=== PATIENT | female | born 1935 | race Caucasian/White ===

== ENCOUNTER 2016-07-15 09:51 | Outpatient (CLI) | payer MEDICARE ==
[~2016-07-15] VITALS: Ht 157.5 cm; Wt 58.1 kg
[~2016-07-15 09:51] MED LIST: ACHD5005 PO; ACYC400T21 PO; ALPR.25T PO; ALPR0.254 PO; AMLO5TAB2; AMLO5TAB2 PO; ASP81TEC PO; ATOR40TA; ATOR40TA PO; ATOR40TA70 PO; BACL10TA; BACL10TA PO; CALC-6 PO; CALC-694 PO; CALC-793 PO; CEPH500T PO; CHOL400C8 PO; CLOP75TA28 PO; CLPD75T PO; CYAN50003 PO; CYCL10TA45 PO; CYCL10TA9 PO; DEXL60CA5 PO; DICL50TA3 PO; DICL50TA6 PO; DIPH1TAB25 PO; ENAL2.5T PO; EXEN10PE4 SQ; FAMO20TA5; FURO20TA4 PO; GABA-488 PO; GABA100C PO; GABA300C PO; GLIM4TAB PO; GLMP2T PO; HYDR-3714 PO; HYDR-3820 PO; HYOS0.1217 PO; HYOS0.1217 SL; INSU100I16 SQ; INSU100V5 SQ; ISM30TCR PO; ISOS30TA3 PO; LEVE1U SQ; LIDO700A6 TP; LRT10T PO; MAGN400C PO; MESA800T PO; METF-380 PO; METO25TA2 PO; METR500T PO; MSL400TEC PO; MULT-608 PO; NF-METHYLP PO; NITR0.3T6 SL; NITR0.4T39 SL; NTR.4SL SL; Nystatin TP; OMEG-59 PO; OMEG-77 PO; OMEG1CAP51 PO; OMEG1CAP74 PO; OMEP20CA12 PO; ONDN4T PO; OXC10TCR PO; OXYB5TAB9; OXYB5TAB9 PO; OXYC-12 PO; OXYC10TA55; OXYC10TA63 PO; OXYC15TA73 PO; PANT40TA PO; PANT40TA3 PO; PARO12.5 PO; PARO20TA4 PO; PARO40TA3 PO; PNT40TEC PO; POTA10CA43 PO; POTA99TA15 PO; POTA99TA7 PO; PRAV80TA2 PO; PRM25T PO; PSYL1CAP3 PO; QUIN20TA PO; RANI300T4 PO; RNT150T PO; SCR1T1 PO; SIME125C PO; SIMV40TA2 PO; TRUBIOTICS PO; VITA1CAP21 PO; VITA1TAB30 PO; ZLP10T PO; [UNRECOGNIZED DRUG - CODE]
[2016-07-15] MEDS ORDERED: PREG50CA2 PO (10:07)
[2016-07-15 10:20] VITALS: BP 116/62
[2016-07-15 10:55] LABS: BASOPHILS % (AUTO) 0 % (0-10); EOSINOPHILS # (AUTO) 0.2 10^3/uL (0.0-0.3); EOSINOPHILS % (AUTO) 3 % (0-10); LYMPHOCYTES # (AUTO) 1.7 X 10^3 (1.0-4.0); LYMPHOCYTES % (AUTO) 23 % (12-44); MEAN CORPUSCULAR HEMOGLOBIN 31 PG (25-34); MEAN CORPUSCULAR HGB CONC 34 G/DL (32-36); MEAN CORPUSCULAR VOLUME 91 FL (80-99); MEAN PLATELET VOLUME 9.9 FL (7.4-10.4); MONOCYTES # (AUTO) 0.4 X 10^3 (0.0-1.0); MONOCYTES % (AUTO) 6 % (0-12); NEUTROPHILS % (AUTO) 68 % (42-75); PLATELET COUNT 244 10^3/uL (130-400); RED BLOOD COUNT 4.31 10^6/uL (4.35-5.85); RED CELL DISTRIBUTION WIDTH 12.4 % (10.0-14.5); WHITE BLOOD COUNT 7.4 10^3/uL (4.3-11.0)
[2016-07-15 11:22] LABS: ALANINE AMINOTRANSFERASE 21 U/L (0-55); ALBUMIN 3.6 G/DL (3.2-4.5); ANION GAP 8 MMOL/L (5-14); ASPARTATE AMINO TRANSFERASE 18 U/L (5-34); BILIRUBIN,TOTAL 0.4 MG/DL (0.1-1.0); BLOOD UREA NITROGEN 20 MG/DL (7-18); BUN/CREATININE RATIO 28; CALCIUM 8.9 MG/DL (8.5-10.1); CARBON DIOXIDE 27 MMOL/L (21-32); CHLORIDE 102 MMOL/L (98-107); CREATININE SERUM 0.72 MG/DL (0.60-1.30); GFR ESTIMATED > 60; GLUCOSE 164 MG/DL (70-105); POTASSIUM 4.4 MMOL/L (3.6-5.0); SODIUM 137 MMOL/L (135-145); TOTAL PROTEIN 6.2 G/DL (6.4-8.2)
== END 2016-07-15 11:32 | disposition home or self-care (01) ==
LOC: PREOP 09:51
PROVIDERS: ATTEND Orthopaedic Surgery
DX: Z01.812 Encounter for preprocedural laboratory examination (principal); Z11.2 Encounter for screening for other bacterial diseases; M48.06 Spinal stenosis, lumbar region
CPT/HCPCS: 36415; 80053; 85025; 86850; 86900; 86901; 87081

== ENCOUNTER 2016-07-28 21:06 | Inpatient (IN) | payer MEDICARE ==
[~2016-07-28] VITALS: Ht 147.3 cm; Wt 57.6 kg
[~2016-07-28 21:06] MED LIST changes: +PREG50CA2 PO
[2016-07-28 21:15] VITALS: BP 163/79
[2016-07-29] VITALS (14 sets, daily range): BP systolic 85–152; BP diastolic 43–70
[2016-07-29] MEDS ORDERED: PARO20TA5 PO (05:05)
[2016-07-29] MEDS ORDERED: PREG50CA2 PO (05:08)
[2016-07-29] MEDS ORDERED: VITA1CAP16 PO (05:12)
[2016-07-29] MEDS ORDERED: trubiotics (05:12)
[2016-07-29] MEDS ORDERED: POTA99TA21 PO (05:13)
[2016-07-29] MEDS ORDERED: BUP/EPI 0.5% 1:200,000 (SENSORCAINE) 30 ML VIAL ONE (06:48)
[2016-07-29] MEDS ORDERED: DEXMEDETOMIDINE IV ONE (06:51)
[2016-07-29] MEDS ORDERED: [UNRECOGNIZED DRUG - OTHER] IV ONE (06:51)
[2016-07-29] MEDS: LACTATED RINGERS 1,000 ML IV PRN ×3 (07:30→10:00)
[2016-07-29] MEDS ORDERED: FAMOTIDINE 20MG/2ML IV (PEPCID) ONE (07:35)
[2016-07-29] MEDS ORDERED: fentaNYL INJECTION 100 MCG/2 ML AMP ONE ×2 (07:35→08:49)
[2016-07-29] MEDS ORDERED: BACITRACIN 100,000 UNIT/NS 1000 ML POUR BOTTLE IR ONE ×2 (08:00)
[2016-07-29] MEDS ORDERED: ceFAZolin 2 GM/NS 50 ML IV ONE (08:15)
[2016-07-29] MEDS ORDERED: LIDOCAINE PF 2% 10 ML (XYLOCAINE) AMP ONE (08:57)
[2016-07-29] MEDS ORDERED: SEVOFLURANE (ULTANE) 15 ML INHAL SOLN ONE ×7 (08:57→10:15)
[2016-07-29] MEDS ORDERED: ROCURONIUM 50 MG/5 ML (ZEMURON) VIAL IV ONE (08:57)
[2016-07-29] MEDS ORDERED: LACTATED RINGERS 2,000 ML IV ONE (08:57)
[2016-07-29] MEDS ORDERED: ONDANSETRON 4 MG/2 ML (SDV) Z0FRAN ONE (08:57)
[2016-07-29] MEDS ORDERED: proPOfol 200 MG/20 ML (DIPRIVAN) VIAL IV ONE (08:57)
[2016-07-29] MEDS ORDERED: meTOprolol 5 MG/5 ML (LOPRESSOR) VIAL ONE (08:57)
[2016-07-29] MEDS ORDERED: PHENYLEPHRINE INJ 10 MG/ML (NEO-SYNEPHRINE 1%) ONE (09:28)
[2016-07-29] MEDS ORDERED: NEOSTIGMINE (BLOXIVERZ ) 1 MG/1ML 10 ML VIAL ONE (09:32)
[2016-07-29] MEDS ORDERED: GLYCOPYRROLATE 0.2 MG/ML (ROBINUL) 2 ML VIAL ONE (09:32)
[2016-07-29] MEDS ORDERED: VANCOMYCIN 1000 MG/VIAL ONE (10:04)
[2016-07-29] MEDS ORDERED: LACTATED RINGERS 1,000 ML IV ONE (10:15)
[2016-07-29] MEDS ORDERED: ACETAMINOPHEN 325 MG TABLET/CAPLET (TYLENOL) PO PRN (10:30)
[2016-07-29] MEDS ORDERED: BISACODYL 10 MG SUPP (DULCOLAX) PR PRN (10:30)
[2016-07-29] MEDS ORDERED: ONDANSETRON 4 MG/2 ML (SDV) Z0FRAN IV PRN (10:30)
[2016-07-29] MEDS ORDERED: BISACODYL 5 MG (DULCOLAX) TABLET PO PRN (10:30)
[2016-07-29] MEDS ORDERED: CYCLOBENZAPRINE 10 MG (FLEXERIL) TAB PO PRN ×3 (10:45→13:24)
[2016-07-29] MEDS ORDERED: fentaNYL INJECTION 100 MCG/2 ML AMP IV PRN (10:45)
[2016-07-29] MEDS ORDERED: ONDANSETRON 4 MG/2 ML (SDV) Z0FRAN IV ONE (10:45)
[2016-07-29] MEDS ORDERED: diphenhydrAMINE 25 MG TAB (BENADRYL) PO PRN (11:00)
--- NOTE | 2016-07-29 12:10 | Diagnostic Imaging Report ---
INDICATION: Back pain 38 seconds of fluoroscopy was used during the procedure. IMPRESSION: Intraoperative digital images in surgery show postop changes from L4-5 discectomy and fusion. Dictated by: Dictated on workstation # [id number]
[2016-07-29] MEDS: oxyCODONE ER 15 MG (oxyCONTIN CR) TAB PO SCH ×2 (12:22→22:01)
[2016-07-29] MEDS: oxyCODONE/APAP 5/325MG (PERCOCET 5) TABLET PO PRN ×2 (12:22→18:26)
[2016-07-29] MEDS ORDERED: CYCL10TA9 PO (13:00)
[2016-07-29] MEDS ORDERED: INSU100V5 SQ (13:00)
[2016-07-29] MEDS ORDERED: CHOL5000 PO (13:00)
[2016-07-29] MEDS ORDERED: PARO40TA3 PO (13:00)
[2016-07-29] MEDS ORDERED: VITA1CAP42 PO (13:00)
[2016-07-29] MEDS ORDERED: L.AC1CAP6 PO (13:00)
[2016-07-29] MEDS ORDERED: MULT-640 PO (13:00)
[2016-07-29] MEDS: ALPRAZolam 0.25 MG (XANAX) TAB PO PRN (14:08)
[2016-07-29] MEDS: fentaNYL INJECTION 100 MCG/2 ML AMP IVP PRN ×3 (14:08→22:33)
[2016-07-29] MEDS: ceFAZolin INJECTION 1,000 MG in NS (IVPB) 50 ML IV SCH ×2 (14:08→22:43)
--- NOTE | 2016-07-29 18:05 | Consultation-Hospitalist ---
HPI History of Present Illness: HPI/Chief Complaint CC: status post lumbar spine surgery medical management request HPI: This is an 81-year-old white female of Dr. Ramsey's [facility] with a past medical history of CAD with angina, chronic pain, chronic scoliosis, and diabetes mellitus insulin requiring the presents to room 427 after an uncomplicated lumbar spine surgery. I did speak with Jeff with Dr. Olson and she did have a 600 mL estimated blood loss but now is currently doing well and wants to know if she can wear ice packs to her back. I review her home medication list in medical history and she denies any chest pain currently. Source: patient Exam Limitations: no limitations Date Seen 07/29/16 Attending Physician Rehan Olson DO PCP Meenakshi Ramsey DO Referring Physician Date of Admission Jul 28, 2016 at 21:06 Home Medications & Allergies Home Medications Reviewed patient Home Medication Reconciliation Form Allergies Coded Allergies: Sulfa (Sulfonamide Antibiotics) (Verified Allergy, Unknown, 11/17/08) iodine (Verified Allergy, Unknown, 11/17/08) morphine (Verified Allergy, Unknown, PT TAKES LORTAB AT HOME, 07/12/15) prednisone (Verified Allergy, Unknown, 07/12/15) Past Ndozfkw-Nknljt-Xcwaor Hx Patient Social History Marrital Status: 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) Alcohol Use: Denies Use Recreational Drug Use: No Smoking Status: Never a Smoker Physical Abuse Screen: No Sexual Abuse: No Recent Foreign Travel: No Contact w/other who traveled: No Recent Hopitalizations: Yes (MAY 2016-[place]) Recent Infectious Disease Expo: No Immunizations Up To Date Date of Pneumonia Vaccine: May 30, 2010 Date of Influenza Vaccine: Mar 08, 2016 Seasonal Allergies Seasonal Allergies: Yes Surgeries HX Surgeries: Yes (2003-STENTS AND [facility]ALLO[facility] PLACED AT [facility]; shoulder sx, L knee sc) Surgeries: CABG, Coronary Stent Respiratory Hx Respiratory Disorders: No Cardiovascular Hx Cardiovascular Disorders: Yes (STENTS, DOUBLE BYPASS SX) Cardiac Disorders: Coronary Artery Disease, Heart Attack, High Cholesterol Neurological Hx Neurological Disorders: Yes Neurological Disorders: Neuropathy Reproductive System Hx Reproductive Disorders: No Sexually Transmitted Disease: No HIV/AIDS: No Female Reproductive Disorders: Denies Genitourinary Hx Genitourinary Disorders: No Genitourinary Disorders: UTI-Chronic Gastrointestinal Hx Gastrointestinal Disorders: Yes (DIVERTICULOSIS, CROHNS DISEASE) Gastrointestinal Disorders: Gastroesophageal Reflux, Crohns Disease, Diverticulosis, Chronic Diarrhea, Hiatal Hernia Musculoskeletal Hx Musculoskeletal Disorders: Yes (ARTHRITIS) Musculoskeletal Disorders: Arthritis, Chronic Back Pain, Fractures Endocrine Hx Endocrine Disorders: Yes Endocrine Disorders: Diabetes, Insulin dep HEENT HX ENT Disorders: No Loss of Vision: Denies Hearing Impairment: Denies Cancer Hx Cancer: No Psychosocial Hx Psychiatric Problems: No Behavioral Health Disorders: Anxiety, Depression Integumentary HX Skin/Integumentary Disorder: No Blood Transfusions Hx Blood Disorders: No Adverse Reaction to a Blood Tr: No Family Medical History Significant Family History: No Pertinent Family Hx Family Hx: Cardiovascular disease 19 FATHER Diabetes mellitus 19 FATHER G8 SISTER Hypertension 19 FATHER Myocardial infarction 19 FATHER Review of Systems Constitutional: see HPI EENTM: no symptoms reported Respiratory: no symptoms reported Cardiovascular: no symptoms reported Gastrointestinal: no symptoms reported Genitourinary: no symptoms reported Musculoskeletal: back pain Skin: no symptoms reported Psychiatric/Neurological: Depressed All Other Systems Reviewed Negative Unless Noted: Yes Physical Exam Physical Exam Vital Signs Vital Sign - Last 12Hours 07/28/16 07/28/16 21:10 21:15 Temp 98.4 Pulse 72 Resp 20 B/P 163/79 Pulse Ox 100 O2 Delivery Room Air Capillary Refill : General Appearance: No Apparent Distress WD/WN Chronically ill Eyes: Bilateral Eye Normal Inspection, Bilateral Eye PERRL HEENT: PERRL/EOMI Normal ENT Inspection Pharynx Normal Neck: Full Range of Motion Normal Inspection Non Tender Supple Carotid Bruit Respiratory: Chest Non Tender Lungs Clear Normal Breath Sounds No Accessory Muscle Use No Respiratory Distress Cardiovascular: Regular Rate, Rhythm No Edema No Gallop No JVD No Murmur Normal Peripheral Pulses Gastrointestinal: Normal Bowel Sounds No Organomegaly No Pulsatile Mass Non Tender Soft Back: Decreased Range of Motion (due to surgery) Extremity: Normal Capillary Refill Normal Inspection Normal Range of Motion Non Tender No Calf Tenderness No Pedal Edema Neurologic/Psychiatric: Alert Oriented x3 No Motor/Sensory Deficits Normal Mood/Affect Skin: Normal Color Warm/Dry Lymphatic: No Adenopathy Assessment/Plan Admission Diagnosis Assessment: Status post lumbar spine surgery L3-L5 with scoliosis Diabetes mellitus CAD Angina Hyperlipidemia Anxiety Assessment and Plan Pain medication Monitor labs Monitor for anginal symptoms Incentive spirometer Diabetes mellitus management with sliding scale insulin and long-acting Levemir Thanks for this consult and we'll follow with you Clinical Quality Measures DVT/VTE Risk/Contraindication: Risk Factor Score Per Nursin RFS Level Per Nursing on Admit: 3=High ABDOUL COMBS DO Jul 29, 2016 18:05
[2016-07-29] MEDS ORDERED: ATORVASTATIN 40 MG (LIPITOR) TABLET PO SCH (21:00)
[2016-07-29] MEDS ORDERED: inSUlin DETERMIR 1000 UNITS/10 ML VIAL (LEVEMIR) SQ SCH (21:00)
[2016-07-29] MEDS: DOCUSATE SODIUM 100 MG (COLACE) CAP PO SCH (22:00)
[2016-07-29] MEDS: FAMOTIDINE 20 MG (PEPCID) TABLET PO SCH (22:00)
[2016-07-29] MEDS: SENNOSIDES 8.6 MG (SENOKOT) TAB PO SCH (22:01)
[2016-07-29] MEDS: inSUlin DETERMIR 1 UNIT/0.01 ML (LEVEMIR) CHARGE PER UNIT SQ SCH (22:01)
[2016-07-29] MEDS: inSUlin ASPART (NovoLOG) 1 UNIT/0.01 ML (CHARGE PER UNIT) SC SCH (22:02)
[2016-07-30] VITALS: BP 151/73
[2016-07-30] MEDS: fentaNYL INJECTION 100 MCG/2 ML AMP IVP PRN ×2 (01:08→05:20)
[2016-07-30 04:00] VITALS: BP 148/68
[2016-07-30 04:59] LABS: MEAN PLATELET VOLUME 10.1 FL (7.4-10.4); RED BLOOD COUNT 3.39 10^6/uL (4.35-5.85); RED CELL DISTRIBUTION WIDTH 12.8 % (10.0-14.5); WHITE BLOOD COUNT 7.8 10^3/uL (4.3-11.0)
[2016-07-30 05:34] LABS: ALANINE AMINOTRANSFERASE 824 U/L (0-55); ALBUMIN 3.1 G/DL (3.2-4.5); ANION GAP 8 MMOL/L (5-14); ASPARTATE AMINO TRANSFERASE 1027 U/L (5-34); BILIRUBIN,TOTAL 1.8 MG/DL (0.1-1.0); BLOOD UREA NITROGEN 10 MG/DL (7-18); BUN/CREATININE RATIO 16; CALCIUM 8.3 MG/DL (8.5-10.1); CARBON DIOXIDE 28 MMOL/L (21-32); CHLORIDE 104 MMOL/L (98-107); CREATININE SERUM 0.62 MG/DL (0.60-1.30); GFR ESTIMATED > 60; POTASSIUM 3.7 MMOL/L (3.6-5.0); SODIUM 140 MMOL/L (135-145); TOTAL PROTEIN 5.4 G/DL (6.4-8.2)
[2016-07-30 05:37] LABS: GLUCOSE 51 MG/DL (70-105)
[2016-07-30] MEDS: inSUlin ASPART (NovoLOG) 1 UNIT/0.01 ML (CHARGE PER UNIT) SC SCH ×4 (05:47→20:58)
--- NOTE | 2016-07-30 05:52 | Progress Note (SOAP) ---
Subjective Subjective/Events-last exam Mrs Reynolds is POD #1 L4-5 TLIF with laminectomy and PSIF with incidental durotomy and repair. She is laying in bed, mild distress. BGL was found to be 51 this am, she is alert and eating crackers and has juice at bedside. She states she has left knee pain. She denies any other or new symptoms. Objective Exam Vital Signs Date Time Temp Pulse Resp B/P Pulse Ox O2 Delivery O2 Flow Rate FiO2 07/30/16 00:00 100.6 82 18 151/73 98 Nasal Cannula 3.00 07/29/16 23:54 2.50 07/29/16 21:00 99 Nasal Cannula 3.00 07/29/16 19:49 98.6 81 18 148/70 98 Room Air 07/29/16 17:00 75 7 127/55 92 Nasal Cannula 3.00 07/29/16 16:00 99.5 75 11 113/50 99 Nasal Cannula 3.00 07/29/16 15:00 81 21 115/70 100 Nasal Cannula 3.00 07/29/16 14:15 77 10 103/43 100 Nasal Cannula 3.00 07/29/16 13:45 76 20 101/60 100 Nasal Cannula 3.00 07/29/16 13:15 76 11 110/68 100 Nasal Cannula 3.00 07/29/16 12:45 72 23 105/68 100 Nasal Cannula 3.00 07/29/16 12:30 70 11 119/59 100 Nasal Cannula 3.00 07/29/16 12:15 72 9 113/58 100 Nasal Cannula 3.00 07/29/16 12:00 71 8 116/61 100 Nasal Cannula 3.00 07/29/16 11:45 97.7 72 23 85/52 100 Nasal Cannula 3.00 07/29/16 11:35 98 Nasal Cannula 3.00 I & O 07/30/16 07:00 Intake Total 7020 ml Output Total 1650 ml Balance 5370 ml Capillary Refill : General Appearance: No Apparent Distress Neck: Normal Inspection Respiratory: Normal Breath Sounds No Accessory Muscle Use No Respiratory Distress Cardiovascular: Regular Rate, Rhythm Normal Peripheral Pulses Peripheral Pulses: 2+ Dorsalis Pedis (R), 2+ Left Dors-Pedis (L), 2+ Radial Pulses (R), 2+ Radial Pulses (L) Gastrointestinal: non tender soft no organomegaly no pulsatile mass Extremity: Normal Capillary Refill Normal Inspection Non Tender No Calf Tenderness No Pedal Edema Neurologic/Psychiatric: Alert Oriented x3 No Motor/Sensory Deficits Skin: Normal Color Results Lab Laboratory Tests 07/29/16 06:54: Glucometer 102 07/29/16 21:34: Glucometer 202H 07/30/16 04:40: Alanine Aminotransferase (ALT/SGPT) 824H, Albumin 3.1L, Alkaline Phosphatase 194H, Anion Gap 8, Aspartate Amino Transf (AST/SGOT) 1027H, BUN/Creatinine Ratio 16, Blood Urea Nitrogen 10, Calcium Level 8.3L, Carbon Dioxide Level 28, Chloride Level 104, Creatinine 0.62, Estimat Glomerular Filtration Rate > 60, Glucose Level 51*L, Hematocrit 31L, Hemoglobin 10.1L, Mean Corpuscular Hemoglobin 30, Mean Corpuscular Hemoglobin Concent 33, Mean Corpuscular Volume 91, Mean Platelet Volume 10.1, Platelet Count 272, Potassium Level 3.7, Red Blood Count 3.39L, Red Cell Distribution Width 12.8, Sodium Level 140, Total Bilirubin 1.8H, Total Protein 5.4L, White Blood Count 7.8 Assessment/Plan Assessment/Plan Assess & Plan/Chief Complaint Assessment: POD #1 s/p L4-5 TLIF, laminectomy, durotomy with repair diabetes, hypoglycemia opoid tolerance Plan: begin elevating HOB 15 degrees an hour until75 degrees, if asymptomatic may OOB with brace pain control scd for dvt prophylaxis IS Dr German has been consulted Diagnosis/Problems: Clinical Quality Measures DVT/VTE Risk/Contraindication: Risk Factor Score Per Nursin RFS Level Per Nursing on Admit: 3=High NIDIA TRIPLETT Jul 30, 2016 05:52
[2016-07-30] MEDS: ceFAZolin INJECTION 1,000 MG in NS (IVPB) 50 ML IV SCH (06:33)
[2016-07-30] MEDS: oxyCODONE/APAP 5/325MG (PERCOCET 5) TABLET PO PRN (06:37)
[2016-07-30 08:00] VITALS: BP 137/78
[2016-07-30] MEDS: ISOSORBIDE MONONITRATE 30 MG (IMDUR) TAB PO SCH (08:05)
[2016-07-30] MEDS: DOCUSATE SODIUM 100 MG (COLACE) CAP PO SCH ×2 (08:05→20:57)
[2016-07-30] MEDS: FAMOTIDINE 20 MG (PEPCID) TABLET PO SCH ×2 (08:06→20:57)
[2016-07-30] MEDS: SENNOSIDES 8.6 MG (SENOKOT) TAB PO SCH ×2 (08:06→20:57)
[2016-07-30] MEDS: oxyCODONE ER 15 MG (oxyCONTIN CR) TAB PO SCH ×2 (08:06→20:57)
[2016-07-30] MEDS: amLODIPine 5 MG (NORVASC) TAB PO SCH (08:06)
[2016-07-30] MEDS: inSUlin DETERMIR 1 UNIT/0.01 ML (LEVEMIR) CHARGE PER UNIT SQ SCH ×2 (09:00→20:58)
--- NOTE | 2016-07-30 09:45 | OPERATIVE REPORT ---
PROCEDURE PHYSICIAN: SONI POPE DATE OF PROCEDURE: 07/29/2016 SURGEON: Dr. Wesley D.O. FREELANCE PHOTOGRAPHER: Jeff Cat This is a medically necessary procedure and assistant professor of biochemistry is necessary for retraction of vital neurovascular structures. Without an assistant professor of biochemistry, the procedure would not be possible. PREOPERATIVE DIAGNOSES: 1. Lumbar spinal stenosis (connective tissue, disc, central, foraminal, subluxational. 2. Degenerative lumbar scoliosis. 3. Neurogenic claudication. POSTOPERATIVE DIAGNOSIS: 1. Lumbar spinal stenosis (connective tissue, disc, central, foraminal, subluxational. 2. Degenerative lumbar scoliosis. 3. Neurogenic claudication. PROCEDURE PERFORMED: 1. L4-5 transforaminal lumbar interbody fusion. 2. Application of peek cage L4-5. 3. L4-5 posterior spinal fusion. 4. L4-5 posterior instrumentation. 5. Bilateral laminectomy, L4-5. 6. Repair of durotomy. 7. Use of human allograft for spine. 8. Use of local bone autograft. 9. Resection of facet cyst. COMPLICATIONS: Incidental durotomy. DRAIN PLACED: None. ANESTHESIA: General endotracheal tube anesthesia with local anesthetic. ESTIMATED BLOOD LOSS: See anesthesia records. HISTORY OF PRESENT ILLNESS: Mr. Reynolds is a very pleasant 81-year-old female with a history of severe degenerative lumbar scoliosis. She did have critical central stenosis at L4-5 on MRI. She failed conservative measures and did wish to proceed with operative intervention. She understood heightened risks of the surgery especially considering her advanced age and her degenerative lumbar scoliosis and her poor bone quality however, she did wish to proceed with decompression. I opted to do a limited one level decompression and fusion at L4-5. OPERATION: The patient was identified by name on wrist band in the preoperative holding area. Her operative site was signed, consent was signed. SCDs were placed and neural monitoring was hooked up and antibiotics were started. She was taken to the operating room theater, placed under general endotracheal tube anesthesia and transferred to the operating room table in the prone position. All bony prominences were well padded. She was prepped and draped in the usual sterile fashion. A formal timeout was conducted. At this point lateral x-ray was brought into place. I marked out the extent of my incision, which would extend from the spinous process of L4 to spinous process of L5. I then made an incision and proceeded with bilateral subperiosteal paraspinal muscular approach exposing the posterior elements. At this point I did a laminectomy. I used a Leksell rongeur high speed bur and Kerrison rongeurs to perform bilateral laminectomies with complete facetectomies at L4-5; please note there was critical spinal stenosis. There was a facet cyst which required resection on the left side and during this decompression and resection of facet cyst I did encounter an incidental durotomy. The bone spurs had actually grown into the dura and adequate decompression resulted in that incidental durotomy. Therefore, I used a 4-0 Nurolon stitch to repair this durotomy and had anesthesia perform a Valsalva maneuver; there was no further leakage of fluid. I then turned my attention to placement of pedicle screws bilaterally in L4, and L5. I did this under lateral x-ray. Once they were in I tested them with EMG neural monitoring and I also obtained. AP and lateral x-ray the screws were in good position. At this point I did retracted the thecal sac medially identifying the disc space. I performed an annulotomy followed by complete discectomy. I then sized and chose the appropriate titanium interbody cage. I packed this with human allograft, then I seated it in the midline position. At this point, I placed a savannah on the left and savannah on the right. I placed set screws and I final tightened the set screws. I irrigated the wound with 2 liters of antibiotic enhanced irrigation. I opted not to place a drain secondary to the durotomy. I then packed human allograft and local bone autograft in the left and the right gutter to promote posterior spinal fusion. At this point, I closed the wound in my usual layered fashion utilizing 0 Vicryl, followed by 2-0 Vicryl, followed by running 3-0 subcuticular stitch. I applied dressings and took the patient to the PACU in the supine position. She tolerated the procedure well. PLAN: The plan at this time is to get the patient out of bed on postop day one. I feel confident with my durotomy repair. Therefore, I will not placed her on flat bed rest, advance her diet as tolerated discontinue her Gutierrez per my protocol. Please note neural monitoring utilized throughout the procedure SSEPs, EMGs train of fours and they were stable throughout. Also note instrumentation used was Nuvasive for the screws titanium components. Job ID: [id number] Dictated Date: 07/29/2016 10:21:37 Explosive Technician Date: 07/30/2016 09:27:01 / arnulfo
--- NOTE | 2016-07-30 09:59 | Progress Note-Hospitalist ---
Progress Note HPI/CC on Admission CC: status post lumbar spine surgery medical management request HPI: This is an 81-year-old white female of Dr. Ramsey's a [facility] with a past medical history of CAD with angina, chronic pain, chronic scoliosis, and diabetes mellitus insulin requiring the presents to room 427 after an uncomplicated lumbar spine surgery. I did speak with Jeff with Dr. Olson and she did have a 600 mL estimated blood loss but now is currently doing well and wants to know if she can wear ice packs to her back. I review her home medication list in medical history and she denies any chest pain currently. Progress Notes/Assess & Plan Date Seen 07/30/16 Admission Dx/Process Assessment: Status post lumbar spine surgery L3-L5 with scoliosis Diabetes mellitus CAD Angina Hyperlipidemia Anxiety Diagonsis/Assessment & Plan patient doing well overall just reports pain that continues Head of bed is being more elevated hour by hour for postop management Noted elevated liver enzymes on labs so will monitor closely and hold statin therapy and Tylenol products Did have low blood sugar at 50 once a Levemir is been changed to take 15 units only at night and said a twice a day of 24 units and continues on sliding scale a No BM yet Inpatient rehabilitation eval since she lives alone No fever, vital signs stable, pleasant, chronically ill Regular rate rhythm, clear to auscultation bilaterally No edema Laboratory Tests 07/30/16 04:40 Assessment: Status post lumbar spine surgery L3-L5 with scoliosis POD # 1 Significant elevation of liver enzymes holding statin and Tylenol products Diabetes mellitus CAD Angina Hyperlipidemia Anxiety Pain medication without Tylenol Monitor labs for liver Monitor for anginal symptoms Hold statin therapy due to elevated liver enzymes Incentive spirometer Diabetes mellitus management with sliding scale insulin and long-acting Levemir but decrease Levemir to 15 units at night only instead of 24 BID Thanks for this consult and we'll follow with you ABDOUL COMBS DO Jul 30, 2016 09:59
[2016-07-30 12:00] VITALS: BP 116/62
--- NOTE | 2016-07-30 14:33 | Anesthesia-General Post-Op ---
General Patient Condition Mental Status/LOC: Same as Preop Cardiovascular: Satisfactory Nausea/Vomiting: Absent Respiratory: Satisfactory Pain: Controlled Complications: Absent Post Op Complications Complications None Follow Up Care/Instructions Patient Instructions None needed. Anesthesia/Patient Condition Patient Condition Patient is doing well, no complaints, stable vital signs, no apparent adverse anesthesia problems. No complications reported per nursing. CHRIS OLVERA CRNA Jul 30, 2016 14:33
--- NOTE | 2016-07-30 14:53 | Physical Therapy Progress Note ---
Therapy Progress Note Patient is in bed and adamantly declined PT due to 10/10 back pain and "I just don't feel like it." PT educated patient on importance of actively participating with PT to increase strength and mobility and to prevent possible negative side effects. Patient adamantly declined and stated, "I may do it tomorrow." PT to attempt in a.m. FWW and gait belt placed in room. 1 ref JAMIL MCCARTY PT Jul 30, 2016 14:53
[2016-07-30 16:00] VITALS: BP 116/56
[2016-07-30 19:56] VITALS: BP 121/59
[2016-07-31] VITALS (7 sets, daily range): BP systolic 120–149; BP diastolic 60–94
[2016-07-31 05:21] LABS: BASOPHILS % (AUTO) 0 % (0-10); EOSINOPHILS # (AUTO) 0.1 10^3/uL (0.0-0.3); EOSINOPHILS % (AUTO) 1 % (0-10); LYMPHOCYTES # (AUTO) 1.6 X 10^3 (1.0-4.0); LYMPHOCYTES % (AUTO) 19 % (12-44); MEAN CORPUSCULAR HEMOGLOBIN 30 PG (25-34); MEAN CORPUSCULAR HGB CONC 33 G/DL (32-36); MEAN CORPUSCULAR VOLUME 91 FL (80-99); MEAN PLATELET VOLUME 9.9 FL (7.4-10.4); MONOCYTES # (AUTO) 0.8 X 10^3 (0.0-1.0); MONOCYTES % (AUTO) 10 % (0-12); NEUTROPHILS # (AUTO) 5.7 X 10^3 (1.8-7.8); NEUTROPHILS % (AUTO) 70 % (42-75); PLATELET COUNT 226 10^3/uL (130-400); RED BLOOD COUNT 3.13 10^6/uL (4.35-5.85); RED CELL DISTRIBUTION WIDTH 12.9 % (10.0-14.5); WHITE BLOOD COUNT 8.2 10^3/uL (4.3-11.0)
[2016-07-31 05:49] LABS: ALANINE AMINOTRANSFERASE 377 U/L (0-55); ALBUMIN 2.9 G/DL (3.2-4.5); ANION GAP 10 MMOL/L (5-14); ASPARTATE AMINO TRANSFERASE 207 U/L (5-34); BILIRUBIN,TOTAL 0.7 MG/DL (0.1-1.0); BLOOD UREA NITROGEN 8 MG/DL (7-18); BUN/CREATININE RATIO 14; CALCIUM 8.5 MG/DL (8.5-10.1); CARBON DIOXIDE 27 MMOL/L (21-32); CHLORIDE 99 MMOL/L (98-107); CREATININE SERUM 0.58 MG/DL (0.60-1.30); GFR ESTIMATED > 60; GLUCOSE 134 MG/DL (70-105); POTASSIUM 3.4 MMOL/L (3.6-5.0); SODIUM 136 MMOL/L (135-145); TOTAL PROTEIN 5.3 G/DL (6.4-8.2)
[2016-07-31] MEDS: inSUlin ASPART (NovoLOG) 1 UNIT/0.01 ML (CHARGE PER UNIT) SC SCH ×4 (06:00→21:47)
--- NOTE | 2016-07-31 08:06 | Progress Note (SOAP) ---
Subjective Subjective/Events-last exam Tosha is POD #2 s/p L4-5 TLIF with PSIF. She has not yet been OOB. She tolerate HOB elevation yesterday. Tylenol has been d/c due to elevated liver enzymes. Review of Systems HEENT: No Head Aches Pulmonary: No Dyspnea Gastrointestinal: No: Nausea, Vomiting Musculoskeletal: : back pain Neurological: No: Change in speech, Confusion, Numbness, Weakness Objective Exam Vital Signs Date Time Temp Pulse Resp B/P Pulse Ox O2 Delivery O2 Flow Rate FiO2 07/31/16 04:00 99.7 84 20 120/61 94 Nasal Cannula 3.00 07/31/16 00:00 99.9 93 20 136/60 94 Nasal Cannula 3.00 07/30/16 21:37 Room Air 07/30/16 19:56 100.8 95 20 121/59 96 Nasal Cannula 3.00 07/30/16 16:00 99.7 86 20 116/56 96 Nasal Cannula 3.00 07/30/16 12:00 100.3 80 20 116/62 94 07/30/16 09:00 95 Room Air 3.00 I & O 07/31/16 07:00 Intake Total 1180 ml Output Total 1500 ml Balance -320 ml Capillary Refill : NONE General Appearance: No Apparent Distress WD/WN Neck: Normal Inspection Respiratory: Normal Breath Sounds No Accessory Muscle Use No Respiratory Distress Cardiovascular: Normal Peripheral Pulses Peripheral Pulses: 2+ Dorsalis Pedis (R), 2+ Left Dors-Pedis (L), 2+ Radial Pulses (R), 2+ Radial Pulses (L) Gastrointestinal: non tender soft Extremity: Normal Capillary Refill Non Tender No Calf Tenderness Neurologic/Psychiatric: Alert Oriented x3 Results Lab Laboratory Tests 07/30/16 10:48: Glucometer 98 07/30/16 16:40: Glucometer 154H 07/30/16 20:45: Glucometer 207H 07/31/16 04:51: Alanine Aminotransferase (ALT/SGPT) 377H, Albumin 2.9L, Alkaline Phosphatase 144H, Anion Gap 10, Aspartate Amino Transf (AST/SGOT) 207H, BUN/Creatinine Ratio 14, Basophils # (Auto) 0.0, Basophils (%) (Auto) 0, Blood Urea Nitrogen 8 , Calcium Level 8.5, Carbon Dioxide Level 27, Chloride Level 99, Creatinine 0.58L, Eosinophils # (Auto) 0.1, Eosinophils (%) (Auto) 1, Estimat Glomerular Filtration Rate > 60, Glucose Level 134H, Hematocrit 29L, Hemoglobin 9.4L, Lymphocytes # (Auto) 1.6, Lymphocytes (%) (Auto) 19, Mean Corpuscular Hemoglobin 30, Mean Corpuscular Hemoglobin Concent 33, Mean Corpuscular Volume 91, Mean Platelet Volume 9.9, Monocytes # (Auto) 0.8, Monocytes (%) (Auto) 10, Neutrophils # (Auto) 5.7, Neutrophils (%) (Auto) 70, Platelet Count 226, Potassium Level 3.4L, Red Blood Count 3.13L, Red Cell Distribution Width 12.9, Sodium Level 136, Total Bilirubin 0.7, Total Protein 5.3L, White Blood Count 8.2 Microbiology 07/28/16 MRSA Screen - Final, Complete MRSA not isolated Assessment/Plan Assessment/Plan Assess & Plan/Chief Complaint Assessment: POD #1 s/p L4-5 TLIF, laminectomy, durotomy with repair diabetes, hypoglycemia opoid tolerance elevated liver enzymes Plan: OOB today pain control scd for dvt prophylaxis discussed rehab placement, will see how she progresses with therapy Dr German is following Diagnosis/Problems: Clinical Quality Measures DVT/VTE Risk/Contraindication: Risk Factor Score Per Nursin RFS Level Per Nursing on Admit: 3=High NIDIA TRIPLETT Jul 31, 2016 08:06
[2016-07-31] MEDS: oxyCODONE ER 15 MG (oxyCONTIN CR) TAB PO SCH ×2 (09:29→21:09)
[2016-07-31] MEDS: SENNOSIDES 8.6 MG (SENOKOT) TAB PO SCH ×2 (09:29→21:00)
[2016-07-31] MEDS: DOCUSATE SODIUM 100 MG (COLACE) CAP PO SCH ×2 (09:29→21:00)
[2016-07-31] MEDS: ISOSORBIDE MONONITRATE 30 MG (IMDUR) TAB PO SCH (09:29)
[2016-07-31] MEDS: FAMOTIDINE 20 MG (PEPCID) TABLET PO SCH ×2 (09:29→21:08)
[2016-07-31] MEDS: amLODIPine 5 MG (NORVASC) TAB PO SCH (09:29)
--- NOTE | 2016-07-31 09:39 | Physical Therapy Evaluation ---
PT Evaluation-General Medical Diagnosis Admission Date Jul 28, 2016 at 21:06 Medical Diagnosis: s/p L4-5 TLIF with PSIF Onset Date: Jul 29, 2016 Therapy Diagnosis Therapy Diagnosis: impaired mobility, strength, endurance Height/Weight Height (Feet): 4 Height (Inches): 10.00 Weight (Pounds): 127 Weight (Ounces): 0.0 Precautions Precautions/Isolations: Fall Prevention, Standard Precautions Referral Physician: Regina German DO Reason for Referral: Evaluation/Treatment Medical History Pertinent Medical History: Arthritis, CABG, CAD, DM, HTN, Neuropathy Reviewed History: Yes Social History Home: Single Level Current Living Status: Alone Entry Into Home: Level Entry Patient lives in a first floor apartment, states she uses a rolling walker. Prior/Core FIM Prior Level of Function Functional [place] Measure 0=Not Assessed/NA 4=Minimal Assistance 1=Total Assistance 5=Supervision or Setup 2=Maximal Assistance 6=Modified [place] 3=Moderate Assistance 7=Complete [place] Bed Mobility: 6 Transfers (B,C,W/C) (FIM): 6 Gait: 6 PT Evaluation-Current Subjective Patient in bed on bedpan but cannot go. She answers questions but seems very anxious and unfocused. Has pain of 5/10 in back. Pt/Family Goals to decrease her pain Objective Patient Orientation: Person, Place, Situation Attachments: Oxygen 3L of O2 nasal canula ROM/Strength ROM Lower Extremities WNL Strenght Lower Extremities NT due to pain Neuromuscular (Tone, Coordination, Reflexes) Patient has decreased coordination in both lower extremities. Sensory Vision: Functional Hearing: Functional Sensation Right Lower Extremit: Intact Sensation Left Lower Extremity: Intact Sensation Lower Extremities Patient had intact light touch sensation tested in L4-5 and S1 dermatomes. Transfers Functional [place] Measure 0=Not Assessed/NA 4=Minimal Assistance 1=Total Assistance 5=Supervision or Setup 2=Maximal Assistance 6=Modified [place] 3=Moderate Assistance 7=Complete [place] Transfers (B, C, W/C) (FIM): 3 Scootin Rollin Supine to/from Sit: 3 Sit to/from Stand: 4 needs cues for safety and hand placement, impulsive Gait Mode of Locomotion: Walk Anticipated Mode of Locomotion: Walk Gait (FIM): 1 Distance: 20' Gait Level of Assist: 4 Gait Persons Needed: 1 Gait Assistive Device: FWW Comments/Gait Description slow, antalgic, impulsive Balance Sitting Static: Fair Sitting Dynamic: Fair Standing Static: Fair Standing Dynamic: Fair Treatment seated bilateral lower extremity exercises x 10 (AP, LAQ, GS) Assessment/Needs Patient has impaired mobility, strength, endurance. Rehab Potential: Fair PT Retirement Goals Retirement Goals PT Retirement Goals Time Frame: Aug 07, 2016 Transfers (B,C,W/C) (FIM): 4 Gait (FIM): 2 Distance: 50' Gait Level of Assist: 4 Gait Assistive Device: FWW PT Plan Problem List Problem List: Activity Tolerance, Functional Strength, Safety, Balance, Gait, Transfer, Bed Mobility, ROM Treatment/Plan Treatment Plan: Continue Plan of Care Treatment Plan: Bed Mobility, Education, Functional Activity Giovanny, Functional Strength, Gait, Safety, Therapeutic Exercise, Transfers Treatment Duration: Aug 07, 2016 # of days/week 5-6 Visits Per Week: 5-6 Minutes/Day (M-F): 15-30 Minutes/Day (Sat/Shah): 15-30 Pt/Family Agrees w/Plan: Yes Safety Risks/Education Patient Education: Gait Training, Transfer Techniques, Correct Positioning, Safety Issues Teaching Recipient: Patient Teaching Methods: Demonstration, Discussion Response to Teaching: Reinforcement Needed Discharge Recommendations Plan Patient will perform bed mobility and transfer training, balance and endurance training, functional strengthening, stair training, gait training, education, to improve functional mobility and independence at home. Therapy D/C Recommendations: Home w/ Family Support, Fpc (TCU/NH) Time/GCodes Time In: 910 Time Out: 930 Total Billed Treatment Time: 20 Total Billed Treatment 1 visit EVL 20 min JAIDA DICK PT Jul 31, 2016 09:39
--- NOTE | 2016-07-31 11:22 | Progress Note-Hospitalist ---
Progress Note HPI/CC on Admission CC: status post lumbar spine surgery medical management request HPI: This is an 81-year-old white female of Dr. Ramsey's a [facility] with a past medical history of CAD with angina, chronic pain, chronic scoliosis, and diabetes mellitus insulin requiring the presents to room 427 after an uncomplicated lumbar spine surgery. I did speak with Jeff with Dr. Olson and she did have a 600 mL estimated blood loss but now is currently doing well and wants to know if she can wear ice packs to her back. I review her home medication list in medical history and she denies any chest pain currently. 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 Pt has been lowered to 2L O2. SW Review: SW states that pt is considered for rehab on 2 nd floor. SW has also consulted [facility] and spoke with pt's family members , who are all ok with the plan to move pt to [place]. Patient Interview: Pt states that she feels much better than yesterday, but is still in pain. Pt has not yet had a BM, and would like some bowel meds. Physical exam stable. Pt has bowel sounds. Pt asks whether or not she needs to continue with O2. Pt has been using IS, and has been working with PT. No fever, vital signs stable, pleasant, chronically ill Regular rate rhythm, clear to auscultation bilaterally No edema Assessment: Status post lumbar spine surgery L3-L5 with scoliosis POD # 2 Significant elevation of liver enzymes holding statin and Tylenol products now improved Diabetes mellitus CAD Angina Hyperlipidemia Anxiety Plan: DC cath DC to jail tomorrow Pain medication without Tylenol Monitor labs for liver Monitor for anginal symptoms Hold statin therapy due to elevated liver enzymes Incentive spirometer Diabetes mellitus management with sliding scale insulin and long-acting Levemir but decrease Levemir to 15 units at night only instead of 24 BID Thanks for this consult and we'll follow with you Scribed by Antonio Enciso under the direct supervision of Dr. Combs. ABDOUL COMBS DO Jul 31, 2016 11:21 Scribed by Antonio Enciso under the direct supervision of Dr. Combs. ABDOUL COMBS DO Jul 31, 2016 11:21
[2016-07-31] MEDS: LACTULOSE SYRUP 10GM/15ML (ENULOSE) 30ML UDC PO SCH ×2 (13:40→21:00)
--- NOTE | 2016-07-31 14:45 | Occupational Therapy Eval ---
OT Evaluation-General/PLF Medical Diagnosis Admission Date Jul 28, 2016 at 21:06 Medical Diagnosis: s/p L4-5 TLIF with PSIF Onset Date: Jul 29, 2016 Therapy Diagnosis Therapy Diagnosis: decreased self care skills Height/Weight Height (Feet): 4 Height (Inches): 10.00 Weight (Pounds): 127 Weight (Ounces): 0.0 Precautions Precautions/Isolations: Fall Prevention, Standard Precautions Safety Interventions: None Referral Physician: Regina German DO Medical History Pertinent Medical History: Arthritis, CABG, CAD, DM, HTN, Neuropathy Additional Medical History chronic pain, scoliosis, high cholesterol, diverticulosis, hiatal hernia, Current History Pt s/p L4-5 TLIF with laminectomy and PSIF Reviewed History: Yes Social History Home: Single Level Current Living Status: Alone Entry Into Home: Level Entry ADL-Prior Level of Function ADL PLOF Comments Pt states she has been completing basic self care tasks without assistance, but has been falling recently. Daughter and granddaughter assist at times if needed. Uses 4WW for mobility. DME/Equipment: Bath Chair, Shower Drive Self: Yes OT Current Status Subjective Pt in bed, agrees to therapy. Reports 8/10 back pain. [facility]; [facility]. Mental Status/Objective Patient Orientation: Person, Place, Situation Attachments: Gutierrez Catheter, Oxygen Current Upper Extremity ROM Slightly decreased right shoulder ROM secondary to prior rotator cuff injury. Remainder grossly WFL Upper Extremity Strength Fair ADL-Treatment ADL-Current Pt supine to sit with moderate assistance and increased time, cues for proper technique. Pt sat EOB with good balance during UE assessment. Sit to stand with minimal assistance. Pt able to sidestep to HOB with minimal assistance using FWW for balance. Pt declined to sit up in chair at this time. Sit to supine with assist for LE, cues for proper technique. Pt in bed with needs met and daughter present after session. Functional [place] Measure 0=Not Assessed/NA 4=Minimal Assistance 1=Total Assistance 5=Supervision or Setup 2=Maximal Assistance 6=Modified [place] 3=Moderate Assistance 7=Complete IndependenceIRFPAI Quality Coding Scale 6 Independent with activity with or without an assistive device 5 Patient requires set up or clean up by helper. Patient completes activity by themselves 4 Supervision or touching assist (CGA). [place] provide cues , steadying assist 3 The helper provides less than half the effort to complete the activity 2 The helper provides more than half the effort to complete the activity 1 Dependent. The helper does all the effort to complete an activity 7 Patient refused to complete or attempt activity 9 The patient did not perform the activity before the current illness or injury 88 Not attempted due to Medical conditions or safety concerns Education OT Patient Education: Rehab process Teaching Recipient: Patient Teaching Methods: Discussion Response to Teaching: Verbalize Understanding, Reinforcement Needed OT Short Term Goals Short Term Goals 1=Demonstrate adherence to instructed precautions during ADL tasks. 2=Patient will verbalize/demonstrate understanding of assistive devices/ modifications for ADL. 3=Patient will improve strength/tolerance for activity to enable patient to perform ADL's. OT Supervisor [place] Goals Supervisor [place] Goals Time Frame: Aug 14, 2016 Eating (FIM): 6 Grooming(FIM): 6 Upper Body Dressing(FIM): 5 Lower Body Dressing(FIM): 5 Toileting(FIM): 5 Toilet/Commode Transfer(FIM): 5 Additional Goals: 1-Demonstrate ADL Tasks, 2-Verbalize Understanding, 3- ImproveStrength/Giovanny 1=Demonstrate adherence to instructed precautions during ADL tasks. 2=Patient will verbalize/demonstrate understanding of assistive devices/ modifications for ADL. 3=Patient will improve strength/tolerance for activity to enable patient to perform ADL's. OT Education/Plan Problem List/Assessment Assessment: Decreased Activ Tolerance, Dependent Transfers, Impaired Self-Care Skills Pt s/p L4-5 TLIF and PSIF with decreased mobility and ADL functioning. Pt to benefit from skilled OT intervention for ADL training, transfers, strengthening , adaptive equipment education as needed and home safety education to improve level of function and allow safe discharge. Discharge Recommendations Plan/Recommendations: Continue POC Treatment Plan/Plan of Care Treatment,Training & Education: Yes Patient would benefit from OT for education, treatment and training to promote independence in ADL's, mobility, safety and/or upper extremity function for ADL' s. Plan of Care: ADL Retraining, Functional Mobility, UE Funct Exercise/Act Treatment Duration: Aug 14, 2016 # of days/week 5 Visits Per Week: 5 Agreement: Yes Rehab Potential: Fair Time/GCodes Start Time: 13:32 Stop Time: 13:57 Total Time Billed (hr/min): 25 Billed Treatment Time 1 visit, EVL(25minutes) CIPRAINO RIVAS OT Jul 31, 2016 14:45
[2016-07-31] MEDS: inSUlin DETERMIR 1 UNIT/0.01 ML (LEVEMIR) CHARGE PER UNIT SQ SCH (21:09)
[2016-08-01] VITALS: BP 118/56
[2016-08-01] MEDS ORDERED: IBUPROFEN TABLET 200 MG TAB PO PRN (00:30)
[2016-08-01] MEDS: ALPRAZolam 0.25 MG (XANAX) TAB PO PRN (00:45)
[2016-08-01 04:00] VITALS: BP 140/72
[2016-08-01 05:52] LABS: BASOPHILS % (AUTO) 0 % (0-10); EOSINOPHILS # (AUTO) 0.2 10^3/uL (0.0-0.3); EOSINOPHILS % (AUTO) 3 % (0-10); LYMPHOCYTES # (AUTO) 2.5 X 10^3 (1.0-4.0); LYMPHOCYTES % (AUTO) 30 % (12-44); MEAN CORPUSCULAR HEMOGLOBIN 30 PG (25-34); MEAN CORPUSCULAR HGB CONC 32 G/DL (32-36); MEAN CORPUSCULAR VOLUME 92 FL (80-99); MEAN PLATELET VOLUME 9.9 FL (7.4-10.4); MONOCYTES # (AUTO) 0.8 X 10^3 (0.0-1.0); MONOCYTES % (AUTO) 10 % (0-12); NEUTROPHILS # (AUTO) 4.8 X 10^3 (1.8-7.8); NEUTROPHILS % (AUTO) 57 % (42-75); PLATELET COUNT 234 10^3/uL (130-400); RED BLOOD COUNT 3.15 10^6/uL (4.35-5.85); RED CELL DISTRIBUTION WIDTH 12.6 % (10.0-14.5); WHITE BLOOD COUNT 8.3 10^3/uL (4.3-11.0)
[2016-08-01 06:07] LABS: ALANINE AMINOTRANSFERASE 231 U/L (0-55); ALBUMIN 2.9 G/DL (3.2-4.5); ANION GAP 8 MMOL/L (5-14); ASPARTATE AMINO TRANSFERASE 60 U/L (5-34); BILIRUBIN,TOTAL 0.6 MG/DL (0.1-1.0); BLOOD UREA NITROGEN 8 MG/DL (7-18); BUN/CREATININE RATIO 14; CALCIUM 8.8 MG/DL (8.5-10.1); CARBON DIOXIDE 30 MMOL/L (21-32); CHLORIDE 102 MMOL/L (98-107); CREATININE SERUM 0.57 MG/DL (0.60-1.30); GFR ESTIMATED > 60; POTASSIUM 3.1 MMOL/L (3.6-5.0); SODIUM 140 MMOL/L (135-145); TOTAL PROTEIN 5.7 G/DL (6.4-8.2)
[2016-08-01 06:17] LABS: GLUCOSE 51 MG/DL (70-105)
[2016-08-01] MEDS: inSUlin ASPART (NovoLOG) 1 UNIT/0.01 ML (CHARGE PER UNIT) SC SCH ×2 (06:30→11:41)
[2016-08-01 06:31] LABS: BILIRUBIN,URINE NEGATIVE (NEGATIVE); KETONES,URINE NEGATIVE (NEGATIVE); LEUKOCYTE ESTERASE ,URINE NEGATIVE (NEGATIVE); NITRITE,URINE NEGATIVE (NEGATIVE); PH,URINE 7 (5-9); PROTEIN,URINE NEGATIVE (NEGATIVE); UROBILINOGEN,URINE NORMAL (NORMAL)
--- NOTE | 2016-08-01 07:00 | Discharge Instructions ---
Discharge Instructions Discharge Medications New, Converted or Re-Newed RX: Other Patient Instructions Goal/Follow Up Appt: follow up with Dr Olson in 2 weeks Patient Instructions: may resume anti coagulation on 08/03/2016 keep incision clean and dry dont bend, lift, twist, push, or pull Return to [facility] For: fever, chills, shortness of breath, chest pain, headaches Activity & Diet Discharge Diet: Cardiac Diet Activity as Tolerated: NIDIA Garcia Aug 01, 2016 07:00
--- NOTE | 2016-08-01 07:04 | Discharge Summary ---
Diagnosis/Chief Complaint Date of Admission Jul 28, 2016 at 21:06 Date of Discharge 08/01/2016 Discharge Date: Admission Diagnosis Admission Diagnosis lumbar stenosis lumbar radiculopathy lumbar scoliosis Discharge Diagnosis same Reason Hospital Visit L4-5 TLIF, laminectomy, PSIF Discharge Summary Hospital Course Hospital Course Tosha Reynolds is a 81 y/o female who was admitted to the hospital for L4-5 TLIF with laminectomy and PSIF for lumbar stenosis and radiculopathy. She tolerated the procedure well. She had to lay flat due to incidental durotomy with repair for 1 day after surgery. She tolerated HOB elevation and has been up with PT. Otherwise her hospital course has been uncomplicated and she is being dismissed to nursing facility on POD #3 Labs Laboratory Tests 07/29/16 21:34: Glucometer 202H 07/30/16 04:40: Alanine Aminotransferase (ALT/SGPT) 824H, Albumin 3.1L, Alkaline Phosphatase 194H, Aspartate Amino Transf (AST/SGOT) 1027H, Calcium Level 8.3L, Glucose Level 51*L, Hematocrit 31L, Hemoglobin 10.1L, Red Blood Count 3.39L, Total Bilirubin 1.8H, Total Protein 5.4L 07/30/16 07:20: 07/30/16 10:48: 07/30/16 16:40: Glucometer 154H 07/30/16 20:45: Glucometer 207H 07/31/16 04:51: Alanine Aminotransferase (ALT/SGPT) 377H, Albumin 2.9L, Alkaline Phosphatase 144H, Aspartate Amino Transf (AST/SGOT) 207H, Creatinine 0.58L, Glucose Level 134H, Hematocrit 29L, Hemoglobin 9.4L, Potassium Level 3.4L, Red Blood Count 3.13L, Total Protein 5.3L 07/31/16 10:53: Glucometer 282H 07/31/16 15:59: Glucometer 170H 07/31/16 20:54: Glucometer 293H 08/01/16 05:17: Alanine Aminotransferase (ALT/SGPT) 231H, Albumin 2.9L, Aspartate Amino Transf ( AST/SGOT) 60H, Creatinine 0.57L, Glucose Level 51*L, Hematocrit 29L, Hemoglobin 9.4L, Potassium Level 3.1L, Red Blood Count 3.15L, Total Protein 5.7L 08/01/16 06:15: Urine Specific [place] 1.010L Procedures None. Discharge Physical Examination Allergies: Coded Allergies: Sulfa (Sulfonamide Antibiotics) (Verified Allergy, Unknown, 11/17/08) iodine (Verified Allergy, Unknown, 11/17/08) morphine (Verified Allergy, Unknown, PT TAKES LORTAB AT HOME, 07/12/15) prednisone (Verified Allergy, Unknown, 07/12/15) Vitals & I&Os Vital Signs Date Time Temp Pulse Resp B/P Pulse Ox O2 Delivery O2 Flow Rate FiO2 08/01/16 04:00 96.4 74 18 140/72 98 Nasal Cannula 3.00 General Appearance: Alert, Oriented X3, Cooperative, No Acute Distress HEENT: Atraumatic Cardiovascular: Regular Rate Abdominal: Soft, No Tenderness Extremities: No Edema, Normal Pulses Skin: No Rashes, No Breakdown Neuro: Normal Speech, Strength at 5/5 X4 Ext, Sensation Intact Psych/Mental Status: Mental Status NL Discharge Home Medications Reviewed and agree with Discharge Medication list on patient's Discharge Instruction sheet Instructions to Patient/Family Please see electonic discharge instructions given to patient. Clinical Quality Measures DVT/VTE Risk/Contraindication: Risk Factor Score Per Nursin RFS Level Per Nursing on Admit: 3=High NIDIA TRIPLETT Aug 01, 2016 07:04
[2016-08-01 08:00] VITALS: BP 139/65
[2016-08-01] MEDS: amLODIPine 5 MG (NORVASC) TAB PO SCH (08:53)
[2016-08-01] MEDS: FAMOTIDINE 20 MG (PEPCID) TABLET PO SCH (08:53)
[2016-08-01] MEDS: ISOSORBIDE MONONITRATE 30 MG (IMDUR) TAB PO SCH (08:53)
[2016-08-01] MEDS: LACTULOSE SYRUP 10GM/15ML (ENULOSE) 30ML UDC PO SCH (08:54)
[2016-08-01] MEDS: oxyCODONE ER 15 MG (oxyCONTIN CR) TAB PO SCH (08:54)
[2016-08-01] MEDS: SENNOSIDES 8.6 MG (SENOKOT) TAB PO SCH (08:55)
[2016-08-01] MEDS: DOCUSATE SODIUM 100 MG (COLACE) CAP PO SCH (08:55)
[2016-08-01] MEDS ORDERED: ALPR0.254 PO (09:27)
[2016-08-01] MEDS ORDERED: Oxycodone Hcl PO (09:27)
[2016-08-01] MEDS ORDERED: PREG50CA2 PO (09:27)
[2016-08-01] MEDS ORDERED: IPRA3AMP INH (09:27)
[2016-08-01] MEDS ORDERED: LACT20SO2 PO (09:27)
[2016-08-01] MEDS ORDERED: INSU100V5 SQ (09:27)
--- NOTE | 2016-08-01 09:28 | Diagnostic Imaging Report ---
INDICATION: Fever. PA and lateral chest obtained 8:38 a.m. and compared to 05/15/16. FINDINGS: There is marked dextroscoliotic change. There is poststernotomy change with normal heart size. There are calcified bilateral breast implants. There is no focal infiltrate or pneumothorax or pleural fluid. IMPRESSION: Chronic and postoperative changes as above with no definite focal infiltrate or pleural fluid. Dictated by: Dictated on workstation # [id number]
--- NOTE | 2016-08-01 10:35 | Physical Therapy Daily Note ---
PT Daily Note-Current Subjective Patient in bed pre tx, agrees to ambulate and get in a recliner. Has pain of 3/ 10 in her back and she states she needs to get off of her bottom. Appearance Patient in recliner with legs elevated post tx, has nurse call, phone, tray, chair alarm, all needs met. Mental Status Patient Orientation: Person, Place, Situation Attachments: Gutierrez Catheter Transfers Functional [place] Measure 0=Not Assessed/NA 4=Minimal Assistance 1=Total Assistance 5=Supervision or Setup 2=Maximal Assistance 6=Modified [place] 3=Moderate Assistance 7=Complete IndependenceIRFPAI Quality Coding Scale 6 Independent with activity with or without an assistive device 5 Patient requires set up or clean up by helper. Patient completes activity by themselves 4 Supervision or touching assist (CGA). [place] provide cues , steadying assist 3 The helper provides less than half the effort to complete the activity 2 The helper provides more than half the effort to complete the activity 1 Dependent. The helper does all the effort to complete an activity 7 Patient refused to complete or attempt activity 9 The patient did not perform the activity before the current illness or injury 88 Not attempted due to Medical conditions or safety concerns Transfers (B, C, W/C) (FIM): 4 Scootin Rollin Supine to/from Sit: 5 Sit to/from Stand: 4 patient is fairly impulsive, needs cues for safety Gait Training Gait (FIM): 1 Distance: 20' Gait Level of Assist: 4 Gait Persons Needed: 1 Gait Assistive Device: FWW patient needs a little assist with guiding the walker, slow, antalgic Exercises Seated Therapy Exercises: Ankle pumps, Long arc quads, Hip abd/add Seated Reps: 20 Treatments bed mobility and transfers, ambulation, functional strengthening Assessment Current Status: Fair Progress patient is making progress with functional mobility, she is being discharged from this facility today PT Care Home Goals Care Home Goals PT Patent Prosecution Attorney Goals Time Frame: Aug 07, 2016 Transfers (B,C,W/C) (FIM): 4 Gait (FIM): 2 Distance: 50' Gait Level of Assist: 4 Gait Assistive Device: FWW PT Plan Problem List Problem List: Activity Tolerance, Functional Strength, Safety, Balance, Gait, Transfer, Bed Mobility, ROM Treatment/Plan Treatment Plan: Continue Plan of Care Treatment Plan: Bed Mobility, Education, Functional Activity Giovanny, Functional Strength, Gait, Safety, Therapeutic Exercise, Transfers Treatment Duration: Aug 07, 2016 Visits Per Week: 5-6 Minutes/Day (M-F): 15-30 Minutes/Day (Sat/Shah): 15-30 Safety Risks/Education Patient Education: Gait Training, Transfer Techniques, Safety Issues Teaching Recipient: Patient Teaching Methods: Demonstration, Discussion Response to Teaching: Reinforcement Needed Time/GCodes Time In: 1010 Time Out: 1025 Total Billed Treatment Time: 15 Total Billed Treatment 1 visit GT 15 min JAIDA DICK PT Aug 01, 2016 10:35
[2016-08-01] MEDS: RT-ALBUTEROL/IPRATROPIUM 3 ML (DUONEB) VIAL INH SCH (11:17)
--- NOTE | 2016-08-01 11:33 | Discharge Inst-Skilled Nursing ---
Discharge Inst-Skilled NF Chief Complaint CC: status post lumbar spine surgery medical management request HPI: This is an 81-year-old white female of Dr. Ramsey's a [facility] with a past medical history of CAD with angina, chronic pain, chronic scoliosis, and diabetes mellitus insulin requiring the presents to room 427 after an uncomplicated lumbar spine surgery. I did speak with Jeff with Dr. Olson and she did have a 600 mL estimated blood loss but now is currently doing well and wants to know if she can wear ice packs to her back. I review her home medication list in medical history and she denies any chest pain currently. Patient Instructions Patient Problems: Complex spine surgery Severe debility Postop fever with normal chest x-ray and normal urinalysis, monitoring only Goal: strengthening enough to return home Consult/Follow Up/Orders Follow Up Appt.: [facility] as scheduled Skilled NF Admit to: [facility] Certification (SNF) I certify that SNF services are required to be given on an inpatient basis because of the above named patient's need for [facility] care on a continuing basis for the conditions(s) for which he/she was receiving inpatient hospital services prior to his/her transfer to the SNF. [facility] Facility Order: Nursing Services, Director Zone-Evaluate & Treat, Physical Therapy-Evaluate & Treat, Wound Care-Eval/Treat Discharge Diet: No Restrictions, Cardiac Diet Daily Activity as Tolerated: Yes New & Resume Previous Orders Regina German Aug 01, 2016 11:27 REGINA GERMAN DO Aug 01, 2016 11:32
[2016-08-01] MEDS ORDERED: IBUP200C75 PO (11:34)
--- NOTE | 2016-08-01 11:48 | Discharge Summary-Hospitalist ---
Diagnosis/Chief Complaint Date of Admission Jul 28, 2016 at 21:06 Date of Discharge Discharge Date: Aug 01, 2016 Admission Diagnosis Assessment: Status post lumbar spine surgery L3-L5 with scoliosis Diabetes mellitus CAD Angina Hyperlipidemia Anxiety Discharge Diagnosis Assessment: Status post lumbar spine surgery L3-L5 with scoliosis POD # 3 Significant elevation of liver enzymes holding statin and Tylenol products now improved Diabetes mellitus CAD Angina Hyperlipidemia Anxiety postop fever without source Chart Review: Max fever 100.8 WBC 8.2 Hgb 9.4 Liver enzymes much improved with AST/ALT/AP 207/377/144 Blood sugars 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 Pt has been lowered to 2L O2. SW Review: SW states that pt is considered for rehab on 2 nd floor. SW has also consulted [facility] and spoke with pt's family members , who are all ok with the plan to move pt to [place]. Patient Interview: Pt states that she feels much better than yesterday, but is still in pain. Pt has not yet had a BM, and would like some bowel meds. Physical exam stable. Pt has bowel sounds. Pt asks whether or not she needs to continue with O2. Pt has been using IS, and has been working with PT. No fever, vital signs stable, pleasant, chronically ill Regular rate rhythm, clear to auscultation bilaterally No edema Assessment: Status post lumbar spine surgery L3-L5 with scoliosis POD # 2 Significant elevation of liver enzymes holding statin and Tylenol products now improved Diabetes mellitus CAD Angina Hyperlipidemia Anxiety Plan: DC cath DC to assisted tomorrow Pain medication without Tylenol Monitor labs for liver Monitor for anginal symptoms Hold statin therapy due to elevated liver enzymes Incentive spirometer Diabetes mellitus management with sliding scale insulin and long-acting Levemir but decrease Levemir to 15 units at night only instead of 24 BID Thanks for this consult and we'll follow with you Scribed by Antonio Enciso under the direct supervision of Dr. Combs. Reason Hospital Visit/Course CC: status post lumbar spine surgery medical management request HPI: This is an 81-year-old white female of Dr. Ramsey's [facility] with a past medical history of CAD with angina, chronic pain, chronic scoliosis, and diabetes mellitus insulin requiring the presents to room 427 after an uncomplicated lumbar spine surgery. I did speak with Jeff with Dr. Olson and she did have a 600 mL estimated blood loss but now is currently doing well and wants to know if she can wear ice packs to her back. I review her home medication list in medical history and she denies any chest pain currently. Notes from 08/01/2016: Chart Review: Liver enzymes improved Ua normal Max fever 101.6 WBC 8.3 Hgb 9.4 Glucose highly variable at 51, recheck was 150, but was 300 yesterday Ua normal to pursue source of fever CXR negative Patient Interview: Pt states that she is ready to go home. Dr. Combs discusses pt's fever last night and CXR results. Pt states that she is having regular BMs. Physical exam stable. Pleasant, oriented 3, sitting in chair, much improved Regular rate and rhythm, clear to auscultation bilaterally Plan: Hold statin due to elevated liver enzymes that are almost completely resolved Hold Tylenol products Skilled therapy with [place] [facility] with close follow up with [facility] all controlled substances Will continue Neb treatments Monitor closely due to fever Scribed by Antonio Enciso under the direct supervision of Dr. Combs. Discharge Summary Discharge Physical Examination Allergies: Coded Allergies: Sulfa (Sulfonamide Antibiotics) (Verified Allergy, Unknown, 11/17/08) iodine (Verified Allergy, Unknown, 11/17/08) morphine (Verified Allergy, Unknown, PT TAKES LORTAB AT HOME, 07/12/15) prednisone (Verified Allergy, Unknown, 07/12/15) Vitals & I&Os Vital Signs Date Time Temp Pulse Resp B/P Pulse Ox O2 Delivery O2 Flow Rate FiO2 08/01/16 08:00 98.4 78 18 139/65 98 Nasal Cannula 2.00 Hospital Course Labs (last 24 hrs) Laboratory Tests 07/31/16 15:59: Glucometer 170H 07/31/16 20:54: Glucometer 293H 08/01/16 05:17: Alanine Aminotransferase (ALT/SGPT) 231H, Albumin 2.9L, Alkaline Phosphatase 121 , Anion Gap 8, Aspartate Amino Transf (AST/SGOT) 60H, BUN/Creatinine Ratio 14, Basophils # (Auto) 0.0, Basophils (%) (Auto) 0, Blood Urea Nitrogen 8, Calcium Level 8.8, Carbon Dioxide Level 30, Chloride Level 102, Creatinine 0.57L, Eosinophils # (Auto) 0.2, Eosinophils (%) (Auto) 3, Estimat Glomerular Filtration Rate > 60, Glucose Level 51*L, Hematocrit 29L, Hemoglobin 9.4L, Lymphocytes # (Auto) 2.5, Lymphocytes (%) (Auto) 30, Mean Corpuscular Hemoglobin 30, Mean Corpuscular Hemoglobin Concent 32, Mean Corpuscular Volume 92, Mean Platelet Volume 9.9, Monocytes # (Auto) 0.8, Monocytes (%) (Auto) 10, Neutrophils # (Auto) 4.8, Neutrophils (%) (Auto) 57, Platelet Count 234, Potassium Level 3.1L, Red Blood Count 3.15L, Red Cell Distribution Width 12.6, Sodium Level 140, Total Bilirubin 0.6, Total Protein 5.7L, White Blood Count 8.3 08/01/16 06:15: Urine Bacteria NEGATIVE, Urine Bilirubin NEGATIVE, Urine Casts NONE, Urine Clarity CLEAR, Urine Color YELLOW, Urine Crystals NONE, Urine Culture Indicated NO, Urine Glucose (UA) NEGATIVE, Urine Ketones NEGATIVE, Urine Leukocyte Esterase NEGATIVE, Urine Mucus NEGATIVE, Urine Nitrite NEGATIVE, Urine Protein NEGATIVE, Urine RBC NONE, Urine RBC (Auto) NEGATIVE, Urine Specific [place] 1.010L, Urine Squamous Epithelial Cells 2-5, Urine Urobilinogen NORMAL, Urine WBC NONE, Urine pH 7 08/01/16 07:14: Glucometer 150H 08/01/16 11:22: Glucometer 212H Microbiology 07/28/16 MRSA Screen - Final, Complete MRSA not isolated Pending Labs Laboratory Tests 08/01/16 05:17: Alanine Aminotransferase (ALT/SGPT) 231, Albumin 2.9, Alkaline Phosphatase 121, Anion Gap 8, Aspartate Amino Transf (AST/SGOT) 60, BUN/Creatinine Ratio 14, Basophils # (Auto) 0.0, Basophils (%) (Auto) 0, Blood Urea Nitrogen 8, Calcium Level 8.8, Carbon Dioxide Level 30, Chloride Level 102, Creatinine 0.57, Eosinophils # (Auto) 0.2, Eosinophils (%) (Auto) 3, Estimat Glomerular Filtration Rate > 60, Glucose Level 51, Hematocrit 29, Hemoglobin 9.4, Lymphocytes # (Auto) 2.5, Lymphocytes (%) (Auto) 30, Mean Corpuscular Hemoglobin 30, Mean Corpuscular Hemoglobin Concent 32, Mean Corpuscular Volume 92, Mean Platelet Volume 9.9, Monocytes # (Auto) 0.8, Monocytes (%) (Auto) 10, Neutrophils # (Auto) 4.8, Neutrophils (%) (Auto) 57, Platelet Count 234, Potassium Level 3.1, Red Blood Count 3.15, Red Cell Distribution Width 12.6, Sodium Level 140, Total Bilirubin 0.6, Total Protein 5.7, White Blood Count 8.3 08/01/16 06:15: Urine Bacteria NEGATIVE, Urine Bilirubin NEGATIVE, Urine Casts NONE, Urine Clarity CLEAR, Urine Color YELLOW, Urine Crystals NONE, Urine Culture Indicated NO, Urine Glucose (UA) NEGATIVE, Urine Ketones NEGATIVE, Urine Leukocyte Esterase NEGATIVE, Urine Mucus NEGATIVE, Urine Nitrite NEGATIVE, Urine Protein NEGATIVE, Urine RBC NONE, Urine RBC (Auto) NEGATIVE, Urine Specific [place] 1.010, Urine Squamous Epithelial Cells 2-5, Urine Urobilinogen NORMAL, Urine WBC NONE, Urine pH 7 08/01/16 07:14: Glucometer 150 08/01/16 11:22: Glucometer 212 Discharge Home Medications: Active Scripts Active Ibuprofen 200 Mg Capsule 200 Mg PO BID PRN 3 Days Levemir (Insulin Determir) 1,000 Units/10 Ml Soln 10 Unit SQ HS 30 Days Lactulose 20 Gm/30 Ml Solution 10 Gm PO BID [Oxycodone Hcl] 5 MG Tab 5 Mg PO Q4H PRN Iprat-Albut 0.5-3(2.5) mg/3 ml (Ipratropium/Albuterol Sulfate) 3 Ml Ampul.neb 3 Ml INH RTQ4HR 30 Days Lyrica (Pregabalin) 50 Mg Capsule 50 Mg PO BID Alprazolam 0.25 Mg Tablet 0.25 Mg PO BID PRN Reported Cyclobenzaprine HCl 10 Mg Tablet 10 Mg PO HS Probiotic (L.acidoph & Paracasei,B.lactis) 1 Each Capsule 1 Cap PO DAILY Vitamin D3 (Cholecalciferol (Vitamin D3)) 5,000 Unit Capsule 5,000 Unit PO DAILY Super B with Vit C (B Complex with Vitamin C) 1 Each Capsule 1 Cap PO DAILY Paroxetine HCl 40 Mg Tablet 20 Mg PO BID TAKES 1/2 (40MG) TABLET Thera-M (Multivits, W-,Other Min) 1 Each Tablet 1 Tab PO DAILY Potassium (Potassium Gluconate) 99 Mg Tablet 99 Mg PO DAILY Clopidogrel (Clopidogrel Bisulfate) 75 Mg Tablet 75 Mg PO DAILY Amlodipine Besylate 5 Mg Tablet 5 Mg PO DAILY Isosorbide Mononitrate ER (Isosorbide Mononitrate) 30 Mg Tab.er.24h 30 Mg PO DAILY Oxycontin (Oxycodone HCl) 15 Mg Tab.er.12h 15 Mg PO Q12H Pantoprazole Sodium 40 Mg Tablet.dr 40 Mg PO BID Nitroglycerin 0.4 Mg Tab.subl 0.4 Mg SL UD PRN Asacol Hd (Mesalamine) 800 Mg Tablet.dr 800 Mg PO BID Fish Oil 1,000 mg Softgel (Yantis-3 Fatty Acids/Fish Oil) 1 Each Capsule 1,000 Mg PO BID Magnesium (Magnesium Oxide) 400 Mg Capsule 400 Mg PO BID Zofran (Ondansetron HCl) 4 Mg Tab 8 Mg PO DAILY PRN TAKES 2 (4 MG) TABLETS Aspirin Ec 81 Mg (Aspirin) 81 Mg Tabec 81 Mg PO HS Instructions to patient/family Please see electonic discharge instructions given to patient. Clinical Quality Measures DVT/VTE Risk/Contraindication: Risk Factor Score Per Nursin RFS Level Per Nursing on Admit: 3=High ABDOUL COMBS DO Aug 01, 2016 11:48
[2016-08-01 14:33] VITALS: BP 139/65
== END 2016-08-01 13:15 | DRG 460 ==
LOC: ICU 21:06 → 4TH 07-29 17:10
PROVIDERS: ADMIT Orthopaedic Surgery; ATTEND Orthopaedic Surgery
PROC: 0SG0071 Fusion of Lumbar Vertebral Joint with Autologous Tissue Substitute, Posterior Approach, Posterior Column, Open Approach (ICD-10-PCS; 2016-07-29)
PROC: 00Q20ZZ Repair Dura Mater, Open Approach (ICD-10-PCS; 2016-07-29)
PROC: 0SB00ZZ Excision of Lumbar Vertebral Joint, Open Approach (ICD-10-PCS; 2016-07-29)
PROC: 0SG00AJ Fusion of Lumbar Vertebral Joint with Interbody Fusion Device, Posterior Approach, Anterior Column, Open Approach (ICD-10-PCS; principal; 2016-07-29 07:43)
DX: M48.06 Spinal stenosis, lumbar region (principal); M85.68 Other cyst of bone, other site; M41.9 Scoliosis, unspecified; G97.41 Accidental puncture or laceration of dura during a procedure; I25.119 Atherosclerotic heart disease of native coronary artery with unspecified angina pectoris; K50.90 Crohn's disease, unspecified, without complications; E11.40 Type 2 diabetes mellitus with diabetic neuropathy, unspecified; E11.649 Type 2 diabetes mellitus with hypoglycemia without coma; E78.00 Pure hypercholesterolemia, unspecified; F41.9 Anxiety disorder, unspecified; F32.9 Major depressive disorder, single episode, unspecified; I25.2 Old myocardial infarction; Z95.0 Presence of cardiac pacemaker; Z95.5 Presence of coronary angioplasty implant and graft; Z79.4 Long term (current) use of insulin; M19.91 Primary osteoarthritis, unspecified site
CPT/HCPCS: 36415; 71020; 80053; 81000; 82962; 85025; 85027; 87081; 94664

== ENCOUNTER 2016-11-15 07:05 | Day surgery (SDC) | payer MEDICARE ==
[~2016-11-15 07:05] MED LIST changes: +CHOL5000 PO; +IBUP200C75 PO; +IPRA3AMP INH; +L.AC1CAP6 PO; +LACT20SO2 PO; +MULT-640 PO; +Oxycodone Hcl PO; +PARO20TA5 PO; +POTA99TA21 PO; +VITA1CAP16 PO; +VITA1CAP42 PO; +trubiotics
[2016-11-15] MEDS ORDERED: NS IV 1000 ML 1,000 ML ONE (07:17)
[2016-11-15] MEDS ORDERED: HEParin (CATH LAB) 2,000 ML IV ONE (07:17)
[2016-11-15] MEDS ORDERED: methylPREDNISolone 125 MG (Solu-MEDROL) VIAL ONE (07:17)
[2016-11-15] MEDS ORDERED: NS IV 1000 ML 1,000 ML IV SCH ×2 (07:30→09:54)
[2016-11-15] MEDS ORDERED: SIME80TA57 PO (08:26)
[2016-11-15] MEDS ORDERED: VITA150T PO (08:26)
[2016-11-15] MEDS ORDERED: DICL50TA6 PO (08:26)
[2016-11-15] MEDS ORDERED: ACET-2267 PO (08:26)
[2016-11-15] MEDS ORDERED: CHOL10007 PO (08:26)
[2016-11-15] MEDS ORDERED: FISH1CAP15 PO (08:26)
[2016-11-15] MEDS ORDERED: DIPH1TAB PO (08:26)
[2016-11-15] MEDS ORDERED: INSU100I29 SQ (08:26)
[2016-11-15] MEDS ORDERED: GUAI600T43 PO (08:26)
[2016-11-15] MEDS ORDERED: ALPR0.254 PO (08:26)
[2016-11-15] MEDS ORDERED: ATOR40TA PO (08:26)
[2016-11-15] MEDS ORDERED: PREG25CA PO (08:26)
[2016-11-15] MEDS ORDERED: diphenhydrAMINE 50 MG/ML INJ (BENADRYL) ONE (08:37)
[2016-11-15] MEDS ORDERED: MIDAZOLAM 5 MG/5 ML (VERSED) VIAL ONE (08:37)
[2016-11-15] MEDS ORDERED: fentaNYL INJECTION 100 MCG/2 ML AMP ONE (08:37)
[2016-11-15] MEDS ORDERED: PATIENT MAY USE OWN MEDS, ALL PO SCH (10:00)
[2016-11-15] MEDS ORDERED: ACETAMINOPHEN 500 MG TAB (TYLENOL) PO ONE (10:30)
== END 2016-11-15 14:44 | disposition home or self-care (01) ==
DX: I25.110 Atherosclerotic heart disease of native coronary artery with unstable angina pectoris (principal); T82.857D Stenosis of other cardiac prosthetic devices, implants and grafts, subsequent encounter; I25.82 Chronic total occlusion of coronary artery; I50.22 Chronic systolic (congestive) heart failure; I11.0 Hypertensive heart disease with heart failure; E78.2 Mixed hyperlipidemia; E11.9 Type 2 diabetes mellitus without complications; Z79.899 Other long term (current) drug therapy; Z79.4 Long term (current) use of insulin

== ENCOUNTER → 2018-03-12 | Outpatient (CLI) | payer MEDICARE ==
[~2018-03-12] MED LIST changes: +ACET-2267 PO; -AMLO5TAB2; +AMLO5TAB7; +AMLO5TAB7 PO; +CHOL10007 PO; +DIPH1TAB PO; +FISH1CAP15 PO; +GUAI600T43 PO; +IBUP-2185 PO; -IBUP200C75 PO; +INSU100I29 SQ; -IPRA3AMP INH; +IPRA3AMP31 INH; +PREG25CA PO; +SIME80TA57 PO; +VITA150T PO
== END ==
LOC: CARD 11:44
PROVIDERS: ATTEND Physician Assistant
DX: I25.10 Atherosclerotic heart disease of native coronary artery without angina pectoris (principal); I11.0 Hypertensive heart disease with heart failure; I50.9 Heart failure, unspecified; E78.5 Hyperlipidemia, unspecified; I08.3 Combined rheumatic disorders of mitral, aortic and tricuspid valves
CPT/HCPCS: 93306

== ENCOUNTER → 2018-09-07 | Outpatient (CLI) | payer MEDICARE ==
[~2018-09-07] MED LIST changes: -AMLO5TAB7; -AMLO5TAB7 PO; +AMLO5TAB9; +AMLO5TAB9 PO; +RT-ALBUTEROL SULF 2.5 MG/3 ML PRE-MIX VIAL INH ONE
--- NOTE | 2018-09-07 18:48 | Diagnostic Imaging Report ---
PROCEDURE: CT chest without contrast. TECHNIQUE: Multiple contiguous axial images were obtained through the chest without the use of intravenous contrast. Auto Exposure Controls were utilized during the CT exam to meet ALARA standards for radiation dose reduction. INDICATION: Allergic rhinitis, cough, and dyspnea. COMPARISON: Exam compared with prior of 11/20/2010. FINDINGS: There is extensive S-type reciprocal thoracolumbar scoliotic curvature superiorly convex to the right without segmentation anomaly or dysraphism, this is a stable chronic finding. Postoperative changes of bilateral breast implants with capsular calcifications noted. No acute-appearing chest wall pathology. No katja alveolar consolidation. There is some mild subpleural scarring in the lung bases, increased from prior but no katja edema or pneumonia. No bronchiectasis. No thickening of the airways. No thoracic lymphadenopathy. No lung mass. No thoracic effusion. The upper abdomen appeared nonacute. IMPRESSION: Some increased subpleural scarring in the lung bases. Severe chronic S-type thoracolumbar scoliosis. No focal pneumonia, mass, adenopathy, effusion, or acute abnormalities identified. Dictated by: Dictated on workstation # [id number]
== END ==
LOC: RAD 15:57
PROVIDERS: ATTEND Nurse Practitioner Family
DX: M41.85 Other forms of scoliosis, thoracolumbar region (principal); R91.8 Other nonspecific abnormal finding of lung field; J30.9 Allergic rhinitis, unspecified; J98.4 Other disorders of lung
CPT/HCPCS: 71250; 94060; 94726; 94729

== ENCOUNTER 2018-09-16 16:40 | Emergency (ER) | payer MEDICARE ==
[~2018-09-16] VITALS: Ht 147.3 cm; Wt 59.0 kg
[~2018-09-16 16:40] MED LIST changes: -RT-ALBUTEROL SULF 2.5 MG/3 ML PRE-MIX VIAL INH ONE
[2018-09-16] MEDS ORDERED: APAP 325 MG/10.15 ML LIQ (TYLENOL) UDC PO STA (16:52)
[2018-09-16] MEDS ORDERED: ACETAMINOPHEN 325 MG TABLET PO STA (16:57)
[2018-09-16] MEDS ORDERED: ACETAMINOPHEN 500 MG TAB (TYLENOL) PO PRN (17:00)
[2018-09-16] MEDS ORDERED: RT-ALBUTEROL/IPRATROPIUM 3 ML (DUONEB) VIAL INH ONE (17:00)
[2018-09-16 17:02] LABS: HEMOGLOBIN 14.3 G/DL (11.5-16.0); WHITE BLOOD COUNT 9.3 10^3/uL (4.3-11.0)
[2018-09-16 17:03] LABS: BASOPHILS # (AUTO) 0.1 10^3/uL (0.0-0.1); BASOPHILS % (AUTO) 1 % (0-10); EOSINOPHILS # (AUTO) 0.3 10^3/uL (0.0-0.3); EOSINOPHILS % (AUTO) 3 % (0-10); HEMATOCRIT 43 % (35-52); LYMPHOCYTES # (AUTO) 2.5 X 10^3 (1.0-4.0); LYMPHOCYTES % (AUTO) 27 % (12-44); MEAN CORPUSCULAR HEMOGLOBIN 32 PG (25-34); MEAN CORPUSCULAR HGB CONC 33 G/DL (32-36); MEAN CORPUSCULAR VOLUME 95 FL (80-99); MEAN PLATELET VOLUME 9.3 FL (7.4-10.4); MONOCYTES # (AUTO) 0.7 X 10^3 (0.0-1.0); MONOCYTES % (AUTO) 7 % (0-12); NEUTROPHILS # (AUTO) 5.7 X 10^3 (1.8-7.8); NEUTROPHILS % (AUTO) 62 % (42-75); PLATELET COUNT 330 10^3/uL (130-400)
--- NOTE | 2018-09-16 17:07 | ED Chest Pain ---
General Chief Complaint: Respiratory Problems Stated Complaint: CHEST PAIN Nursing Triage Note: PT REPORTS TIGHTNESS IN HER CHEST WITH PAIN UNDER BREAST AND AROUND BACK THAT STARTED AROUND 0700 THIS AM. PT REPORTS FREQUENT COUGHING WITH MUCUS. SOA Nursing Sepsis Screen: Possible Sepsis Risk Source: patient Exam Limitations: no limitations (POPPY WETZEL MD) History of Present Illness Date Seen by Provider: Sep 16, 2018 Time Seen by Provider: 16:40 Initial Comments Here with report of pain in her chest under her breast. Also reporting coughing. The coughing is been going on for a while. She states that her chest is tight and feels constricted. Reports that she is coughing up a lot of mucus. Denies nausea or vomiting. Does report shortness of air. Timing/Duration: getting worse, 12 hours Severity/Quality: moderate, tightness Location: central Radiation: no radiation Activities at Onset: none Prior CP/Workup: cardiac cath, stress test Modifying Factors: worse with coughing, worse with movement; improves with rest ASA po SCHOOL COORDINATOR: No NTG SL SCHOOL COORDINATOR: No Associated Symptoms: No abdominal pain, No back pain, No diaphoresis, No nausea /vomiting; shortness of breath; No weakness (POPPY WETZEL MD) Allergies and Home Medications Allergies Coded Allergies: Sulfa (Sulfonamide Antibiotics) (Verified Allergy, Unknown, 09/16/18) iodine (Verified Allergy, Unknown, 09/16/18) morphine (Verified Allergy, Unknown, PT TAKES LORTAB AT HOME, 09/16/18) prednisone (Verified Allergy, Unknown, 09/16/18) Home Medications Acetaminophen 500 Mg Tablet, 1,000 MG PO Q6H PRN for PAIN-MILD, (Reported) Alprazolam 0.25 Mg Tablet, 0.25 MG PO HS, (Reported) Amlodipine Besylate 5 Mg Tablet, 5 MG PO DAILY, (Reported) Aspirin 81 Mg Tabec, 81 MG PO HS, (Reported) Cholecalciferol (Vitamin D3) 1,000 Unit Capsule, 1,000 UNIT PO BID, (Reported) Clopidogrel Bisulfate 75 Mg Tablet, 75 MG PO HS, (Reported) Cyclobenzaprine HCl 10 Mg Tablet, 10 MG PO HS PRN for MUSCLE SPASMS, (Reported) Diclofenac Sodium 50 Mg Tablet.dr, 50 MG PO BID, (Reported) Diphenoxylate HCl/Atropine 1 Each Tablet, 1 TAB PO QID PRN for DIARRHEA, ( Reported) Fish Oil/Dha/Epa 1 Each Capsule, 1,200 MG PO BID, (Reported) Guaifenesin 600 Mg Tab.er.12h, 600 MG PO BID PRN for CONGESTION, (Reported) Insulin Detemir 100 Unit/1 Ml Insuln.pen, 33 UNIT SQ BID, (Reported) Isosorbide Mononitrate 30 Mg Tab.er.24h, 30 MG PO DAILY, (Reported) L.acidoph & Paracasei,B.lactis 1 Each Capsule, 1 CAP PO DAILY, (Reported) Magnesium Oxide 400 Mg Capsule, 400 MG PO BID, (Reported) Mesalamine 800 Mg Tablet.dr, 800 MG PO BID, (Reported) Multivits, W-,Other Min 1 Each Tablet, 1 TAB PO DAILY, (Reported) Nitroglycerin 0.4 Mg Tab.subl, 0.4 MG SL UD PRN for CHEST PAIN, (Reported) Ondansetron Hcl 4 Mg Tab, 4 MG PO TID PRN for NAUSEA/VOMITING-1ST LINE, ( Reported) Oxycodone HCl 15 Mg Tab.er.12h, 15 MG PO Q12H, (Reported) Pantoprazole Sodium 40 Mg Tablet.dr, 40 MG PO BID, (Reported) Paroxetine HCl 40 Mg Tablet, 20 MG PO BID, (Reported) TAKES 1/2 (40MG) TABLET Potassium Gluconate 99 Mg Tablet, 99 MG PO HS, (Reported) Pregabalin 25 Mg Capsule, 25 MG PO BID, (Reported) Simethicone 80 Mg Tab.chew, 80 MG PO TID PRN for GAS, (Reported) Vitamin B Complex & Vit C No.4 150 Mg Tablet, 150 MG PO DAILY, (Reported) Patient Home Medication List Home Medication List Reviewed: Yes (POPPY WETZEL MD) Review of Systems Review of Systems Constitutional: see HPI; No chills; fever EENTM: No Symptoms Reported Respiratory: See HPI, Cough, Shortness of Air, SOA With Exertion Cardiovascular: Chest Pain; Denies Palpitations Gastrointestinal: Denies Abdominal Pain, Denies Nausea, Denies Vomiting Genitourinary: No Symptoms Reported Musculoskeletal: back pain (chronic from scoliosis), muscle pain Skin: no symptoms reported Psychiatric/Neurological: No Symptoms Reported (POPPY WETZEL MD) All Other Systems Reviewed Negative Unless Noted: Yes (POPPY WETZEL MD) Past Rbxopmz-Bsblhv-Zfmcvh Hx Past Med/Social Hx: Reviewed Nursing Past Med/Soc Hx (POPPY WETZEL MD) Patient Social History Alcohol Use: Rarely Uses Recreational Drug Use: No Smoking Status: Never a Smoker Recent Foreign Travel: No Contact w/Someone Who Travel: No Recent Infectious Disease Expo: No Recent Hopitalizations: Yes (MAY 2016-) (POPPY WETZEL MD) Immunizations Up To Date Date of Pneumonia Vaccine: May 30, 2010 Date of Influenza Vaccine: Mar 08, 2016 (POPPY WETZEL MD) Seasonal Allergies Seasonal Allergies: Yes (POPPY WETZEL MD) Past Medical History Surgeries: Yes (shoulder sx, L knee sc, HANDS AND FEET JOINTS, TOE AMPUTATION) CABG, Coronary Stent Respiratory: No Currently Using CPAP: No Currently Using BIPAP: No Cardiac: Yes (STENTS,TRIPLE BYPASS SX 2010) Coronary Artery Disease, Heart Attack, High Cholesterol Neurological: Yes Neuropathy Reproductive Disorders: No Female Reproductive Disorders: Denies Sexually Transmitted Disease: No HIV/AIDS: No Genitourinary: Yes (STRESS INCONTINENCE) UTI-Chronic Gastrointestinal: Yes (DIVERTICULOSIS, CROHNS DISEASE) Gastroesophageal Reflux, Crohns Disease, Diverticulosis, Chronic Diarrhea, Hiatal Hernia Musculoskeletal: No (ARTHRITIS, STENOSIS, POLIO AT AGE 14) Arthritis, Chronic Back Pain, Fractures Endocrine: Yes Diabetes, Insulin dep HEENT: Yes (READING GLASSES) Loss of Vision: Denies Hearing Impairment: Denies Cancer: No Psychosocial: No Anxiety, Depression Integumentary: No Blood Disorders: No Adverse Reaction/Blood Tranf: No (POPPY WETZEL MD) Family Medical History Reviewed Nursing Family Hx (POPPY WETZEL MD) Cardiovascular disease 19 FATHER Diabetes mellitus 19 FATHER G8 SISTER Hypertension 19 FATHER Myocardial infarction 19 FATHER No Pertinent Family Hx (POPPY WETZEL MD) Physical Exam Vital Signs Vital Signs - First Documented 09/16/18 09/16/18 16:40 17:04 Temp 100.3 Pulse 77 Resp 26 B/P (MAP) 166/80 (108) Pulse Ox 96 O2 Delivery Room Air (GUSTAVO OLVERA) Vital Signs Capillary Refill : Less Than 3 Seconds (POPPY WETZEL MD) Height, Weight, BMI Height: 4'10.00" Weight: 130lbs. 0.0oz. 58.249917jm; 26.5 BMI Method:Stated General Appearance: No Apparent Distress, WD/WN HEENT: PERRL/EOMI, Pharynx Normal Neck: Non Tender, Supple Respiratory: No Respiratory Distress, Crackles (bilateral bases), Decreased Breath Sounds; No Wheezing Cardiovascular: Regular Rate, Rhythm Gastrointestinal: Non Tender, Soft Extremity: Normal Range of Motion, Non Tender Neurologic/Psychiatric: Alert, Oriented x3 Skin: Normal Color, Warm/Dry (POPPY WETZEL MD) Focused Exam Lactate Level 09/16/18 16:47: Lactic Acid Level 1.54 (GUSTAVO OLVERA) Lactic Acid Level Laboratory Tests Test 09/16/18 16:47 Lactic Acid Level 1.54 MMOL/L (0.50-2.00) (GUSTAVO OLVERA) Progress/Results/Core Measures Results/Orders Lab Results Laboratory Tests Test 09/16/18 16:47 09/16/18 18:56 09/16/18 19:04 09/16/18 19:34 Range/Units White Blood Count 9.3 4.3-11.0 10^3/uL Red Blood Count 4.53 4.35-5.85 10^6/uL Hemoglobin 14.3 11.5-16.0 G/DL Hematocrit 43 35-52 % Mean Corpuscular Volume 95 80-99 FL Mean Corpuscular Hemoglobin 32 25-34 PG Mean Corpuscular Hemoglobin Concent 33 32-36 G/DL Red Cell Distribution Width 13.0 10.0-14.5 % Platelet Count 330 130-400 10^3/uL Mean Platelet Volume 9.3 7.4-10.4 FL Neutrophils (%) (Auto) 62 42-75 % Lymphocytes (%) (Auto) 27 12-44 % Monocytes (%) (Auto) 7 0-12 % Eosinophils (%) (Auto) 3 0-10 % Basophils (%) (Auto) 1 0-10 % Neutrophils # (Auto) 5.7 1.8-7.8 X 10^3 Lymphocytes # (Auto) 2.5 1.0-4.0 X 10^3 Monocytes # (Auto) 0.7 0.0-1.0 X 10^3 Eosinophils # (Auto) 0.3 0.0-0.3 10^3/uL Basophils # (Auto) 0.1 0.0-0.1 10^3/uL Prothrombin Time 12.3 12.2-14.7 SEC INR Comment 0.9 0.8-1.4 Activated Partial Thromboplast Time 34 24-35 SEC Sodium Level 138 135-145 MMOL/L Potassium Level 3.9 3.6-5.0 MMOL/L Chloride Level 102 98-107 MMOL/L Carbon Dioxide Level 27 21-32 MMOL/L Anion Gap 9 5-14 MMOL/L Blood Urea Nitrogen 21 H 7-18 MG/DL Creatinine 0.85 0.60-1.30 MG/DL Estimat Glomerular Filtration Rate > 60 BUN/Creatinine Ratio 25 Glucose Level 167 H 70-105 MG/DL Lactic Acid Level 1.54 0.50-2.00 MMOL/L Calcium Level 9.4 8.5-10.1 MG/DL Corrected Calcium 9.3 8.5-10.1 MG/DL Magnesium Level 2.1 1.8-2.4 MG/DL Total Bilirubin 0.2 0.1-1.0 MG/DL Aspartate Amino Transf (AST/SGOT) 21 5-34 U/L Alanine Aminotransferase (ALT/SGPT) 26 0-55 U/L Alkaline Phosphatase 65 40-136 U/L Myoglobin 63.4 10.0-92.0 NG/ML Troponin I < 0.028 < 0.028 <0.028 NG/ML B-Type Natriuretic Peptide 113.1 H <100.0 PG/ML Total Protein 7.1 6.4-8.2 GM/DL Albumin 4.1 3.2-4.5 GM/DL Lipase 45 8-78 U/L Glucometer 109 70-110 MG/DL Urine Color YELLOW Urine Clarity CLEAR Urine pH 5 5-9 Urine Specific [place] 1.015 L 1.016-1.022 Urine Protein 1+ H NEGATIVE Urine Glucose (UA) NEGATIVE NEGATIVE Urine Ketones NEGATIVE NEGATIVE Urine Nitrite POSITIVE H NEGATIVE Urine Bilirubin NEGATIVE NEGATIVE Urine Urobilinogen NORMAL NORMAL MG/DL Urine Leukocyte Esterase 3+ H NEGATIVE Urine RBC (Auto) 2+ H NEGATIVE Urine RBC 2-5 H /HPF Urine WBC TNTC H /HPF Urine Squamous Epithelial Cells 10-25 H /HPF Urine Crystals NONE /LPF Urine Bacteria LARGE H /HPF Urine Casts NONE /LPF Urine Mucus NEGATIVE /LPF Urine Culture Indicated NO (GUSTAVO OLVERA) Micro Results Microbiology 09/16/18 Influenza Types A,B Antigen (MICHELL) - Final, Complete (GUSTAVO OLVERA) My Orders Orders - GUSTAVO OLVERA Lidocaine 2% Viscous 15 Ml (Xylocaine Vi (09/16/18 18:15) Famotidine Tablet (Pepcid Tablet) (09/16/18 18:13) Antacid Suspension (Mylanta Suspension (09/16/18 18:15) Accucheck Stat ONCE (09/16/18 18:54) Troponin I (09/16/18 18:54) Cephalexin Capsule (Keflex Capsule) (09/16/18 20:15) Rx-Albuterol Nebs (Rx-Proventil Nebs) (09/16/18 20:10) (GUSTAVO OLVERA) Medications Given in ED Current Medications Medications Dose Ordered Sig/Gerard Route Start Time Stop Time Status Last Admin Dose Admin Al Hydrox/Mg Hydrox/Simethicone 30 ml ONCE ONCE PO 09/16/18 18:15 09/16/18 18:16 DC 09/16/18 18:26 30 ML Albuterol/ Ipratropium 3 ml ONCE ONCE INH 09/16/18 17:00 09/16/18 17:01 DC 09/16/18 17:03 3 ML Cephalexin HCl 500 mg ONCE ONCE PO 09/16/18 20:15 09/16/18 20:16 DC 09/16/18 20:30 500 MG Lidocaine HCl 15 ml ONCE ONCE PO 09/16/18 18:15 09/16/18 18:16 DC 09/16/18 18:26 15 ML (GUSTAVO OLVERA) Vital Signs/I&O 09/16/18 09/16/18 09/16/18 09/16/18 16:40 17:04 18:16 18:23 Temp 100.3 Pulse 77 Resp 26 B/P (MAP) 166/80 (108) Pulse Ox 96 94 95 100 O2 Delivery Room Air Room Air Room Air (GUSTAVO OLVERA) Blood Pressure Mean: 108 Progress Progress Note : Progress Note Seen and evaluated. Initially started as chest pain workup changed to sepsis workup on fever noted and patient reporting cough and phlegm production. We will get EKG and troponin but will initiate sepsis workup as this seems to be more pneumonia related. IV, labs, blood cultures and lactic acid ordered. We will give Tylenol 650 mg by mouth for the fever. Monitor patient. (POPPY WETZEL MD) Progress Note #1: Progress Note Coronary catheterization by Dr. Sabillon 2017: 1. 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 2. Small vessel disease at the mid and distal left anterior descending and mid and distal right posterior descending artery, fairly small arteries. 3. Normal left ventricular size and systolic function. Estimated ejection fraction 60%. 4. Very difficult anatomy due to the heavily tortuous thoracic aorta and severe scoliosis. Lipase unremarkable. We'll add a GI cocktail since she is having some tenderness in her diaphragm area. Probably due to her increased coughing and work of breathing from her upper respiratory tract infection. Progress Note #2: Time: 20:57 Progress Note After her repeat breathing treatment she says her chest pain is gone and she feels way better. She says the last 2 albuterol treatments helped a lot. We have secured a compressor from [facility]ME we'll send her home with that and some albuterol as well as some antibiotics for potential UTI. Patient has an appointment with pulmonology Friday next week. (GUSTAVO OLVERA) Initial ECG Impression Date: Sep 16, 2018 Initial ECG Impression Time: 16:43 Initial ECG Rate: 77 Initial ECG Rhythm: Normal Sinus Comment Sinus rhythm with left bundle-branch block. Left atrial abnormality. Normal axis. No evidence of ST elevation [place]. Similar to previous of 05/15/16. Interpreted by me. (POPPY WETZEL MD) Initial ECG Intervals: Normal Initial ECG Impression: Normal Initial ECG Comparisson: Unchanged (GUSTAVO OLVERA) Diagnostic Imaging Diagonstic Imaging: Xray Plain Films/CT/US/NM/MRI: chest Comments NAME: GASTON MAN MED REC#: [id number] PT STATUS: REG ER : 1935 PHYSICIAN: LAMBERTO MATTA [employer]ER ADMIT DATE: 09/16/18/ER Draft Date of Exam:09/16/18 CHEST 1 VIEW, AP/PA ONLY INDICATION: Chest tightness with pain under breast and around back that started around 7 o'clock this morning. Frequent coughing with mucus and shortness of air. COMPARISON STUDY: CTA of the chest from September 07 and a plain film of the chest from 2016. FINDINGS: Portable view of the chest demonstrates stable coronary artery bypass graft changes and scoliosis. The lungs are clear, the vascularity is normal. There are no pleural effusions. IMPRESSION: There are no acute findings. Dictated on workstation # [id number] Dict: 09/16/18 173 Trans: 09/16/[id number] [facility] [id number] Interpreted by: BRUNA YUSUF MD Electronically signed by: (POPPY WETZEL MD) Departure Impression Primary Impression: Upper respiratory tract infection Qualified Codes: J06.9 - Acute upper respiratory infection, unspecified Additional Impressions: COPD (chronic obstructive pulmonary disease) Qualified Codes: J44.9 - Chronic obstructive pulmonary disease, unspecified UTI (urinary tract infection) Qualified Codes: N30.01 - Acute cystitis with hematuria Disposition: HOME, SELF-CARE Condition: Stable Departure-Patient Inst. Decision time for Depature: 20:58 (GUSTAVO OLVERA) Referrals: KONG BROWN DO (PCP) Primary Care Physician VICTORIANO JACKSON (Family) Primary Care Physician Patient Instructions: COPD Including Emphysema (DC) Add. Discharge Instructions: Take the Keflex one capsule twice a day until complete. Use the nebulizer one vial of albuterol every 4 hours as necessary as well as every 6 hours [id number] for the next couple weeks. Keep your follow-up appointment with pulmonology. All discharge instructions reviewed with patient and/or family. Voiced understanding. Scripts Cephalexin (Cephalexin) 500 Mg Tablet 500 MG PO BID for 7 Days, #14 TAB 0 Refills Prov: GUSTAVO OLVERA 09/16/18 Albuterol Sulfate (Albuterol Sulfate) 2.5 Mg/3 Ml Vial.neb 2.5 MG INH Q4H PRN for SHORTNESS OF BREATH for 30 Days, #120 EA 0 Refills Prov: GUSTAVO OLVERA 09/16/18 POPPY WETZEL MD Sep 16, 2018 17:07 GUSTAVO OLVERA Sep 16, 2018 18:52
[2018-09-16 17:15] LABS: INR 0.9 (0.8-1.4); PROTHROMBIN TIME PATIENT 12.3 SEC (12.2-14.7)
[2018-09-16 17:21] LABS: ALANINE AMINOTRANSFERASE 26 U/L (0-55); ALBUMIN 4.1 GM/DL (3.2-4.5); ALKALINE PHOSPHATASE 65 U/L (40-136); BILIRUBIN,TOTAL 0.2 MG/DL (0.1-1.0); BUN/CREATININE RATIO 25; CALCIUM 9.4 MG/DL (8.5-10.1); CARBON DIOXIDE 27 MMOL/L (21-32); CHLORIDE 102 MMOL/L (98-107); CREATININE SERUM 0.85 MG/DL (0.60-1.30); GFR ESTIMATED > 60; GLUCOSE 167 MG/DL (70-105); LIPASE 45 U/L (8-78); MAGNESIUM 2.1 MG/DL (1.8-2.4); POTASSIUM 3.9 MMOL/L (3.6-5.0); SODIUM 138 MMOL/L (135-145); TOTAL PROTEIN 7.1 GM/DL (6.4-8.2)
--- NOTE | 2018-09-16 17:39 | Diagnostic Imaging Report ---
INDICATION: Chest tightness with pain under breast and around back that started around 7 o'clock this morning. Frequent coughing with mucus and shortness of air. COMPARISON STUDY: CTA of the chest from September 07 and a plain film of the chest from 2016. FINDINGS: Portable view of the chest demonstrates stable coronary artery bypass graft changes and scoliosis. The lungs are clear, the vascularity is normal. There are no pleural effusions. IMPRESSION: There are no acute findings. Dictated by: Dictated on workstation # [id number]
[2018-09-16] MEDS ORDERED: RT-ALBUTEROL SULF 2.5 MG/3 ML PRE-MIX VIAL INH STA (17:49)
[2018-09-16] MEDS ORDERED: FAMOTIDINE 20 MG (PEPCID) TABLET PO STA (18:13)
[2018-09-16] MEDS ORDERED: LIDOCAINE 2% VISCOUS 15 ML UDC PO ONE (18:15)
[2018-09-16] MEDS ORDERED: ANTACID SUSP 30 ML UDC (MYLANTA) PO ONE (18:15)
[2018-09-16 19:14] LABS: BILIRUBIN,URINE NEGATIVE (NEGATIVE); CLARITY,URINE CLEAR; COLOR,URINE YELLOW; GLUCOSE, URINE (UA) NEGATIVE (NEGATIVE); KETONES,URINE NEGATIVE (NEGATIVE); LEUKOCYTE ESTERASE ,URINE 3+ (NEGATIVE); NITRITE,URINE POSITIVE (NEGATIVE); PH,URINE 5 (5-9); PROTEIN,URINE 1+ (NEGATIVE); UROBILINOGEN,URINE NORMAL (NORMAL)
[2018-09-16 19:30] LABS: BACTERIA,URINE LARGE /HPF; WBC,URINE TNTC /HPF
[2018-09-16] MEDS ORDERED: RX-ALBUTEROL NEB 2.5 MG/3 ML PACK #5 IH STA (20:10)
[2018-09-16] MEDS ORDERED: CEPHALEXIN 250 MG (KEFLEX) CAP PO ONE (20:15)
[2018-09-16] MEDS ORDERED: ALBU2.5V4 INH (21:00)
[2018-09-16] MEDS ORDERED: CEPH500T PO (21:00)
[2018-09-16 21:20] VITALS: BP 157/65
== END 2018-09-16 21:20 | disposition home or self-care (01) ==
LOC: EDUNIT# 16:40 → ER 16:41
DX: J06.9 Acute upper respiratory infection, unspecified (principal); J44.9 Chronic obstructive pulmonary disease, unspecified; N39.0 Urinary tract infection, site not specified; I25.10 Atherosclerotic heart disease of native coronary artery without angina pectoris; I25.2 Old myocardial infarction; E78.00 Pure hypercholesterolemia, unspecified; K21.9 Gastro-esophageal reflux disease without esophagitis; E11.40 Type 2 diabetes mellitus with diabetic neuropathy, unspecified; F41.9 Anxiety disorder, unspecified; F32.9 Major depressive disorder, single episode, unspecified; Z86.12 Personal history of poliomyelitis; Z87.19 Personal history of other diseases of the digestive system; Z82.49 Family history of ischemic heart disease and other diseases of the circulatory system; Z87.440 Personal history of urinary (tract) infections; Z88.2 Allergy status to sulfonamides; Z91.041 Radiographic dye allergy status; Z88.5 Allergy status to narcotic agent; Z88.8 Allergy status to other drugs, medicaments and biological substances; Z79.82 Long term (current) use of aspirin; Z79.02 Long term (current) use of antithrombotics/antiplatelets; Z79.4 Long term (current) use of insulin; Z95.5 Presence of coronary angioplasty implant and graft
CPT/HCPCS: 36415; 71045; 80053; 81000; 82962; 83605; 83690; 83735; 83874; 83880; 84484; 85025; 85610; 85730; 87040; 87077; 87088; 87186; 87804; 93005; 93041; 94640

== ENCOUNTER → 2018-09-28 | Outpatient (CLI) | payer MEDICARE ==
[~2018-09-28] MED LIST changes: +ALBU2.5V4 INH
--- NOTE | 2018-09-28 10:33 | Diagnostic Imaging Report ---
Indication: Chronic vascular disease. Study is somewhat compromised due to overlying bowel gas. Blood flow was seen within the aorta as well as the celiac axis as well as the SMA origin as well as 3 cm distal to the origin. There does appear to be significant velocity elevation in the superior mesenteric artery 3 cm distal to the origin reaching up to 316 cm/s. Velocities at the origin are 176 cm/s. Celiac velocities are 86 cm/s. Aorta velocities are 144 cm/s. Impression: Elevated superior mesenteric artery velocities 3 cm beyond the origin, suspicious for high-grade stenosis. No occlusion is seen. Dictated by: Dictated on workstation # [id number]
== END ==
LOC: RAD 07:57
PROVIDERS: ATTEND Internal Medicine Gastroenterology
DX: I99.8 Other disorder of circulatory system (principal)
CPT/HCPCS: 93976

== ENCOUNTER → 2018-10-08 | Outpatient (CLI) | payer MEDICARE ==
[2018-10-08 14:03] LABS: BUN/CREATININE RATIO 28; CREATININE SERUM 0.75 MG/DL (0.60-1.30); GFR ESTIMATED > 60
== END ==
LOC: RAD 13:36
PROVIDERS: ATTEND Internal Medicine Gastroenterology
DX: R10.9 Unspecified abdominal pain (principal)
CPT/HCPCS: 36415; 82565; 84520

== ENCOUNTER → 2019-08-04 | Outpatient (CLI) | payer MEDICARE, OTHER ==
[~2019-08-04] MED LIST changes: +OXYB5TAB13; +OXYB5TAB13 PO; -OXYB5TAB9; -OXYB5TAB9 PO; -SIME80TA57 PO; +SIME80TA66 PO
--- NOTE | 2019-08-04 11:42 | Diagnostic Imaging Report ---
PROCEDURE: CT head without contrast. TECHNIQUE: Multiple contiguous axial images were obtained through the brain without the use of intravenous contrast. Auto Exposure Controls were utilized during the CT exam to meet ALARA standards for radiation dose reduction. INDICATION: Head injury with headache and dizziness as well as blurred vision. COMPARISON: Correlation is made with prior head CT from 05/07/2016. FINDINGS: The ventricles and sulci are consistent with the patient's age. Periventricular hypodensity is noted, consistent with senescent change. No sulcal effacement or midline shift is identified. No acute intra-axial or extra-axial hemorrhage is detected. 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 Cisterns are patent. Visualized paranasal sinuses are clear. IMPRESSION: Chronic and senescent changes. No acute intracranial process is detected. Dictated by: Dictated on workstation # [id number]
== END ==
LOC: RAD 10:42
PROVIDERS: ATTEND Registered Nurse
DX: S09.90XA Unspecified injury of head, initial encounter (principal); H53.8 Other visual disturbances
CPT/HCPCS: 70450

== ENCOUNTER → 2020-03-02 | Outpatient (CLI) | payer MEDICARE, OTHER ==
[~2020-03-02] MED LIST changes: +ACHYD1T PO; -ALPR0.254 PO; -HYDR-3820 PO; -PANT40TA3 PO; +PANT40TA52 PO
[2020-03-02 12:42] LABS: CREATININE SERUM 0.98 MG/DL (0.60-1.30)
--- NOTE | 2020-03-02 13:24 | Diagnostic Imaging Report ---
PROCEDURE: CT abdomen and pelvis without contrast. TECHNIQUE: Multiple contiguous axial images were obtained through the abdomen and pelvis without the use of intravenous contrast. Auto Exposure Controls were utilized during the CT exam to meet ALARA standards for radiation dose reduction. INDICATION: Abdominal pain. FINDINGS: The previous CT abdomen/pelvis exam of 02/04/2014 noted diverticulosis of the sigmoid and descending colon but failed to show any sign of acute diverticulitis. On this exam, there are still numerous diverticula evident involving the sigmoid and descending colon. There is no distortion of the pericolonic fat however to indicate acute diverticulitis. There is no pelvic mass or free fluid collection noted either. The uterus is surgically absent as are the appendix and gallbladder. The urinary bladder is only partially filled and consequently difficult to assess. The liver does not appear to be enlarged. There is no focal mass involving the liver and the biliary tree is not abnormally dilated. The spleen, pancreas, kidneys, adrenals, aorta and inferior vena cava are unremarkable for an acute abnormality. The stomach is partially filled with fluid and gas and consequently difficult to assess. The chronic changes involving the lung bases seen on the prior study are again evident and no different. The peripherally calcified bilateral breast implants noted on the prior study are also again identified and seems similar in appearance. As noted on the prior exam, there is pronounced dextroscoliosis of the lower thoracic spine and levoscoliosis of the lumbar spine. In the interval since the prior exam, the patient has undergone a posterior fusion of L4 and L5. The orthopedic hardware seems to be in good position, but the thecal sac at the fused levels is difficult to evaluate due to artifact. IMPRESSION: 1. There is no evidence for an acute abnormality of the abdomen or pelvis. 2. There is diverticulosis of the sigmoid and descending colon without evidence for acute diverticulitis. 3. There is severe scoliosis of the spine. There has also been an interval fusion of L4 and L5. 4. The uterus, the gallbladder, and the appendix are surgically absent. Dictated by: Dictated on workstation # [id number]
== END ==
LOC: RAD 13:15
PROVIDERS: ATTEND Internal Medicine Gastroenterology
DX: R11.0 Nausea (principal); R10.9 Unspecified abdominal pain; R14.0 Abdominal distension (gaseous); K57.30 Diverticulosis of large intestine without perforation or abscess without bleeding; Z90.49 Acquired absence of other specified parts of digestive tract; Z90.710 Acquired absence of both cervix and uterus
CPT/HCPCS: 36415; 74176; 82565; 84520

== ENCOUNTER → 2020-07-03 | Outpatient (CLI) | payer MEDICARE ==
[~2020-07-03] MED LIST changes: +AMLO-250; +AMLO-250 PO; -AMLO5TAB9; -AMLO5TAB9 PO; -CALC-6 PO; +CALC1TAB84 PO
== END ==
LOC: CARD 13:47
PROVIDERS: ATTEND Internal Medicine Cardiovascular Disease
DX: I50.9 Heart failure, unspecified (principal); I34.0 Nonrheumatic mitral (valve) insufficiency
CPT/HCPCS: 93306

== ENCOUNTER 2020-09-08 16:12 | Emergency (ER) | payer MEDICARE ==
[~2020-09-08] VITALS: Ht 147.3 cm; Wt 62.1 kg
[~2020-09-08 16:12] MED LIST changes: -ISOS30TA3 PO; +ISOS30TA82 PO
--- NOTE | 2020-09-08 17:02 | ED Upper Extremity ---
General Chief Complaint: Upper Extremity Stated Complaint: R HAND RING FINGER DISCOLORATION/R ARM PAIN Source: patient Exam Limitations: no limitations, clinical condition History of Present Illness Date Seen by Provider: Sep 08, 2020 Time Seen by Provider: 16:35 Initial Comments Patient to the ER by private conveyance with her family and chief complaint of they just left the [place] doctor's office with chief complaint that she has been having lancinating pain starting in her neck on the right side radiating down all the way to her fingertips all fingers are involved. She has been palm ving this pain for about 2 months so she went to the doctor who noted that her ring finger was discolored and was concerned with her history of arterial disease she might have compromised to the blood flow. She had a ring on but she says it was loose and easy to come off without any trouble. She says she just woke up this morning with a discoloration in her fingers not particularly painful. She has significant rheumatoid arthritis with history of surgery to all of her fingers on the right hand. She is also broke her elbow in the past on the right side as well as her right shoulder which had to be surgically repaired. She has a cage in her cervical spine. She has no decreased sensation in her hand. History of coronary artery disease, hypertension, hyperlipidemia with heart catheterization [address] Bridges demonstrating EF of 60% and medical therapy recommended. Small artery disease. Allergies and Home Medications Allergies Coded Allergies: Sulfa (Sulfonamide Antibiotics) (Verified Allergy, Unknown, 09/16/18) iodine (Verified Allergy, Unknown, 09/16/18) morphine (Verified Allergy, Unknown, PT TAKES LORTAB AT HOME, 09/16/18) prednisone (Verified Allergy, Unknown, 09/16/18) Home Medications ALPRAZolam 0.25 Mg Tablet, 0.25 MG PO HS, (Reported) Acetaminophen 500 Mg Tablet, 1,000 MG PO Q6H PRN for PAIN-MILD, (Reported) Albuterol Sulfate 2.5 Mg/3 Ml Vial.neb, 2.5 MG INH Q4H PRN for SHORTNESS OF BREATH Prescribed by: GUSTAVO OLVERA on 09/16/182099 Amlodipine Besylate 5 Mg Tablet, 5 MG PO DAILY, (Reported) Aspirin 81 Mg Tabec, 81 MG PO HS, (Reported) Cephalexin 500 Mg Tablet, 500 MG PO BID Prescribed by: GUSTAVO OLVERA on 09/16/18 2100 Cholecalciferol (Vitamin D3) 1,000 Unit Capsule, 1,000 UNIT PO BID, (Reported) Clopidogrel Bisulfate 75 Mg Tablet, 75 MG PO HS, (Reported) Cyclobenzaprine HCl 10 Mg Tablet, 10 MG PO HS PRN for MUSCLE SPASMS, (Reported) Diclofenac Sodium 50 Mg Tablet.dr, 50 MG PO BID, (Reported) Diphenoxylate HCl/Atropine 1 Each Tablet, 1 TAB PO QID PRN for DIARRHEA, (Reported) Fish Oil/Dha/Epa 1 Each Capsule, 1,200 MG PO BID, (Reported) Guaifenesin 600 Mg Tab.er.12h, 600 MG PO BID PRN for CONGESTION, (Reported) Hydrocodone/Acetaminophen 1 Each Tablet, 1 TAB PO Q6H PRN for PAIN-MODERATE (5- 7) Prescribed by: GUSTAVO OLVERA on 09/08/20 1813 Insulin Detemir 100 Unit/1 Ml Insuln.pen, 33 UNIT SQ BID, (Reported) Isosorbide Mononitrate 30 Mg Tab.er.24h, 30 MG PO DAILY, (Reported) L.acidoph & Paracasei,B.lactis 1 Each Capsule, 1 CAP PO DAILY, (Reported) Magnesium Oxide 400 Mg Capsule, 400 MG PO BID, (Reported) Mesalamine 800 Mg Tablet.dr, 800 MG PO BID, (Reported) Multivits,Th W-Fe,Other Min 1 Each Tablet, 1 TAB PO DAILY, (Reported) Nitroglycerin 0.4 Mg Tab.subl, 0.4 MG SL UD PRN for CHEST PAIN, (Reported) Ondansetron Hcl 4 Mg Tab, 4 MG PO TID PRN for NAUSEA/VOMITING-1ST LINE, (Reported) Oxycodone HCl 15 Mg Tab.er.12h, 15 MG PO Q12H, (Reported) Pantoprazole Sodium 40 Mg Tablet.dr, 40 MG PO BID, (Reported) Paroxetine HCl 40 Mg Tablet, 20 MG PO BID, (Reported) TAKES 1/2 (40MG) TABLET Potassium Gluconate 99 Mg Tablet, 99 MG PO HS, (Reported) Pregabalin 25 Mg Capsule, 25 MG PO BID, (Reported) Simethicone 80 Mg Tab.chew, 80 MG PO TID PRN for GAS, (Reported) Vitamin B Complex & Vit C No.4 150 Mg Tablet, 150 MG PO DAILY, (Reported) Patient Home Medication List Home Medication List Reviewed: Yes Review of Systems Constitutional: No chills, No diaphoresis EENTM: No ear discharge, No ear pain Respiratory: No cough, No short of breath Cardiovascular: No edema, No palpitations Gastrointestinal: No abdominal pain, No nausea Genitourinary: No discharge, No dysuria Musculoskeletal: see HPI; No back pain; joint pain, neck pain All Other Systems Reviewed Negative Unless Noted: Yes Past Drajjjk-Zyiqum-Eugetq Hx Patient Social History Alcohol Use: Denies Use Smoking Status: Never a Smoker 2nd Hand Smoke Exposure: No Recent Hopitalizations: No Immunizations Up To Date Date of Pneumonia Vaccine: May 30, 2010 Date of Influenza Vaccine: Mar 08, 2016 Seasonal Allergies Seasonal Allergies: Yes Past Medical History Surgeries: Yes (shoulder sx, L knee sc, HANDS AND FEET JOINTS, TOE AMPUTATION) CABG, Coronary Stent Respiratory: No Currently Using CPAP: No Currently Using BIPAP: No Cardiac: Yes (STENTS,TRIPLE BYPASS SX 2010) Coronary Artery Disease, Heart Attack, High Cholesterol Neurological: Yes Neuropathy Reproductive Disorders: No Female Reproductive Disorders: Denies Sexually Transmitted Disease: No HIV/AIDS: No Genitourinary: Yes (STRESS INCONTINENCE) UTI-Chronic Gastrointestinal: Yes (DIVERTICULOSIS, CROHNS DISEASE) Gastroesophageal Reflux, Crohns Disease, Diverticulosis, Chronic Diarrhea, Hiatal Hernia Musculoskeletal: No (ARTHRITIS, STENOSIS, POLIO AT AGE 14) Arthritis, Chronic Back Pain, Fractures Endocrine: Yes Diabetes, Insulin dep HEENT: Yes (READING GLASSES) Loss of Vision: Denies Hearing Impairment: Denies Cancer: No Psychosocial: No Anxiety, Depression Integumentary: No Blood Disorders: No Adverse Reaction/Blood Tranf: No Family Medical History Cardiovascular disease 19 FATHER Diabetes mellitus 19 FATHER G8 SISTER Hypertension 19 FATHER Myocardial infarction 19 FATHER No Pertinent Family Hx Physical Exam Vital Signs Vital Signs - First Documented 09/08/20 16:27 Temp 36.2 Pulse 83 Resp 17 B/P (MAP) 186/124 (144) Pulse Ox 94 O2 Delivery Room Air Capillary Refill : Height, Weight, BMI Height: 4'10.00" Weight: 130lbs. 0.0oz. [id number]; 26.5 BMI Method:Stated General Appearance: WD/WN, mild distress HEENT: PERRL/EOMI, pharynx normal Neck: full range of motion, tender lateral (Right side loading and direct palpation recreate symptoms of lancinating pain all the way down to her fingertips on the right upper extremity) Cardiovascular: normal peripheral pulses, regular rate, rhythm Respiratory: no respiratory distress, no accessory muscle use Shoulder: non-tender, no evidence of injury (Acute) Elbow/Forearm: normal inspection, Right (Reproduction of symptoms to Tinel's tap over the ulnar gutter) Wrist: Yes normal inspection, Yes non-tender, Yes normal ROM Hand: non-tender, Right, deformity (Chronic rheumatoid arthritis deformity), ecchymosis (Nonblanchable ecchymoses over the fourth digit proximal and intermediate phalanx right side) Neurologic/Tendon: normal sensation, normal motor functions, normal tendon functions, responds to pain, no evidence tendon injury Procedures/Interventions Progress Point tenderness injection in the right trapezius with 1 cc of half percent bupivacaine and 1/2 cc of 40 mg/mL Depo-Medrol. Progress/Results/Core Measures Results/Orders My Orders Orders - GUSTAVO OLVERA Ct Cervical Spine Wo (09/08/20 16:47) Hydrocodone/Apap 5/325 Tablet (Lortab 5 (09/08/20 18:15) Bupivacaine 0.5% Injection (Sensorcaine (09/08/20 18:15) Methylprednisolone Acetate Inj (Depo-Med (09/08/20 18:15) Vital Signs/I&O 09/08/20 16:27 Temp 36.2 Pulse 83 Resp 17 B/P (MAP) 186/124 (144) Pulse Ox 94 O2 Delivery Room Air Progress Progress Note #1: Time: 17:02 Progress Note Her pain radiating down all the way to her fingertips is reproducible by loading the right side of her neck. It is also reproducible by pushing at the levels of about C5-C6-C7. The discoloration in her finger is nonblanchable and appears to be ecchymoses probably related to a hemarthrosis related to her history of rheumatoid arthritis and being on aspirin and Plavix. She has good brisk capillary refill less than 3 seconds in all 5 digits and adequate, symmetrical radial and ulnar pulses bilaterally. The digit is warm and there is no evidence of local, right hand arterial insufficiency. Plan to get a CT of her neck looking for significant radiculopathy. She says she cannot tolerate steroids and with her history of vascular disease NSAIDs is not a good option either. Progress Note #2: Time: 18:05 Progress Note After discussing risks and benefits she has elected to do a point tenderness injection with some Depo-Medrol. 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 We are going to give her some bupivacaine and lidocaine and have her follow-up with Dr. Olson the orthopedic surgeon has been following her. Diagnostic Imaging Diagonstic Imaging: CT Plain Films/CT/US/NM/MRI: c-spine Comments NAME: GASTON MAN [facility] REC#: [id number] PT STATUS: REG ER : 1935 PHYSICIAN: GUSTAVO OLVERA MD ADMIT DATE: 09/08/20/ER Draft Date of Exam:09/08/20 CT CERVICAL SPINE WO PROCEDURE: CT cervical spine without contrast. TECHNIQUE: Multiple contiguous axial images were obtained through the cervical spine without the use of intravenous contrast. Sagittal and coronal reformations were then performed. Auto Exposure Controls were utilized during the CT exam to meet ALARA standards for radiation dose reduction. INDICATION: Right upper extremity radiculopathy. COMPARISON: May 07, 2016. FINDINGS: Postsurgical changes of a corpectomy of C5 with anterior plate and screw fixation of C4 through C6 is again identified. Strut device remains in place, appearing similar to prior exam. No evidence of hardware complication. 2 mm anterolisthesis of C6 on C7, new since 2016. No additional significant anterolisthesis or retrolisthesis. Vertebral body heights are well-maintained. Alignment of the atlanto-occipital joint is well maintained. Significant degenerative changes with pannus formation about the atlanto-occipital axial joint. [place] left curvature of the visualized cervicothoracic spine. No acute fracture or dislocation. No destructive osseous process. Scattered vascular calcifications. No apical pneumothorax. C2-C3: No significant central canal or neural foraminal stenosis. C3-C4: Moderate-sized central disc protrusion superimposed upon a small diffuse disc bulge. This is seen at least contacting if not deforming the spinal cord at this location. Bilateral facet joint degenerative changes and uncovertebral joint hypertrophy. There is resulting mild bilateral neural foraminal stenosis. C4-C5: Postsurgical changes. Bilateral uncovertebral joint hypertrophy and facet joint degenerative changes. There is minimal bilateral neural foraminal stenosis without significant central canal stenosis. C5-C6: Postsurgical changes. Right uncovertebral joint hypertrophy. There is resulting ugpcquuw-hp-uvdins right neural foraminal stenosis without significant left neural foraminal stenosis or central canal stenosis. C6-C7: Grade 1 anterolisthesis. Bilateral facet joint degenerative changes and uncovertebral joint hypertrophy. There is resulting ckibycos-oq-xtwdnt right and moderate left neural foraminal stenosis. Minimal central canal stenosis. C7-T1: Facet joint degenerative changes. No significant central canal or neural foraminal stenosis. IMPRESSION: Postsurgical changes within the cervical spine without evidence of hardware complication or acute osseous abnormality. Multilevel degenerative changes with a focal disc protrusion noted at the C3-C4 level which significantly narrows the central canal and likely contacts if not deform the spinal cord. This could be further evaluated with MRI of the cervical spine if no contraindications to MRI are present. Qtsowfvc-az-fswtqx right neural foraminal stenosis at C5-C6 as above. Minimal anterolisthesis of C6 on C7, new since 2015. Dictated on workstation # [id number] Dict: 09/08/20 1728 Trans: 09/08/20 174 [facility] [id number] Interpreted by: BANDAR PRUETT MD Electronically signed by: Reviewed: Reviewed by Me Departure Impression Primary Impression: Hemarthrosis involving hand Qualified Codes: M25.041 - Hemarthrosis, right hand Additional Impression: Cervical radiculopathy, acute Disposition: 01 HOME, SELF-CARE Condition: Stable Departure-Patient Inst. Decision time for Depature: 18:07 Referrals: SONI OLSON BENJAMEN H MD (PCP) Primary Care Physician Patient Instructions: Hemarthrosis, Radiculopathy (DC) Add. Discharge Instructions: We have found multiple levels of bulging disks causing pinched nerves worse on the right side of your neck which explain the pain you have been experiencing for the past 2 months. You need to follow-up with Dr. Olson in the next month to discuss possible treatment modalities. Your primary care doctor may also help manage your pain and refer you to appropriate specialists. We have given you an injection with 20 mg of Depo-Medrol they will help reduce some of the swelling and may give you some pain relief over the next 5 to 7 days. Tylenol 650 mg every 8 hours as necessary for pain. Topical creams such as icy hot, Biofreeze, Aspercreme etc. as necessary for p ain. Hydrocodone 1 tablet every 6 hours as necessary for severe breakthrough pain keeping you from being functional. Hydrocodone will cause constipation and you should combine it with a capful of MiraLAX in 6 to 8 ounces of fluid every day that you need hydrocodone. Do not mix hydrocodone with benzodiazepines such as Xanax as it may cause an unsafe level of drowsiness and respiratory depression. All discharge instructions reviewed with patient and/or family. Voiced understanding. Scripts Hydrocodone/Acetaminophen (Hydrocodone-Acetamin 5-325 mg) 1 Each Tablet 1 TAB PO Q6H PRN for PAIN-MODERATE (5-7), #12 TAB 0 Refills Prov: GUSTAVO OLVERA 09/08/20 Copy Copies To 1: SONI OLSON TITUS J Sep 08, 2020 17:01
--- NOTE | 2020-09-08 17:43 | Diagnostic Imaging Report ---
PROCEDURE: CT cervical spine without contrast. TECHNIQUE: Multiple contiguous axial images were obtained through the cervical spine without the use of intravenous contrast. Sagittal and coronal reformations were then performed. Auto Exposure Controls were utilized during the CT exam to meet ALARA standards for radiation dose reduction. INDICATION: Right upper extremity radiculopathy. COMPARISON: May 07, 2016. FINDINGS: Postsurgical changes of a corpectomy of C5 with anterior plate and screw fixation of C4 through C6 is again identified. Strut device remains in place, appearing similar to prior exam. No evidence of hardware complication. 2 mm anterolisthesis of C6 on C7, new since 2016. No additional significant anterolisthesis or retrolisthesis. Vertebral body heights are well-maintained. Alignment of the atlanto-occipital joint is well maintained. Significant degenerative changes with pannus formation about the atlanto-occipital axial joint. [place] left curvature of the visualized cervicothoracic spine. No acute fracture or dislocation. No destructive osseous process. Scattered vascular calcifications. No apical pneumothorax. C2-C3: No significant central canal or neural foraminal stenosis. C3-C4: Moderate-sized central disc protrusion superimposed upon a small diffuse disc bulge. This is seen at least contacting if not deforming the spinal cord at this location. Bilateral facet joint degenerative changes and uncovertebral joint hypertrophy. There is resulting mild bilateral neural foraminal stenosis. C4-C5: Postsurgical changes. Bilateral uncovertebral joint hypertrophy and facet joint degenerative changes. There is minimal bilateral neural foraminal stenosis without significant central canal stenosis. C5-C6: Postsurgical changes. Right uncovertebral joint hypertrophy. There is resulting qrsblkdx-st-riolof right neural foraminal stenosis without significant left neural foraminal stenosis or central canal stenosis. C6-C7: Grade 1 anterolisthesis. Bilateral facet joint degenerative changes and uncovertebral joint hypertrophy. There is resulting qfgmatsv-ck-qcsnyv right and moderate left neural foraminal stenosis. Minimal central canal stenosis. C7-T1: Facet joint degenerative changes. No significant central canal or neural foraminal stenosis. IMPRESSION: Postsurgical changes within the cervical spine without evidence of hardware complication or acute osseous abnormality. Multilevel degenerative changes with a focal disc protrusion noted at the C3-C4 level which significantly narrows the central canal and likely contacts if not deforms the spinal cord. This could be further evaluated with MRI of the cervical spine if no contraindications to MRI are present. Eeshxawk-gy-zbxddz right neural foraminal stenosis at C5-C6 as above. Minimal anterolisthesis of C6 on C7, new since 2016. Dictated by: Dictated on workstation # [id number]
[2020-09-08] MEDS ORDERED: ACHD5005 PO (18:12)
[2020-09-08] MEDS ORDERED: BUPIVACAINE 0.5% 30 ML (SENSORCAINE) VIAL INJ ONE (18:15)
[2020-09-08] MEDS ORDERED: methylPREDNISolone 40 MG/ML (DEPO MEDROL) VIAL IM ONE (18:15)
[2020-09-08] MEDS ORDERED: HYDROcodone/APAP 5 MG/325 MG (LORTAB) TAB PO ONE (18:15)
[2020-09-08 18:36] VITALS: BP 182/84
== END 2020-09-08 18:34 | disposition home or self-care (01) ==
LOC: EDUNIT# 16:12 → ER 16:17
DX: M25.041 Hemarthrosis, right hand (principal); M54.12 Radiculopathy, cervical region; E11.40 Type 2 diabetes mellitus with diabetic neuropathy, unspecified; M06.9 Rheumatoid arthritis, unspecified; I25.10 Atherosclerotic heart disease of native coronary artery without angina pectoris; I25.2 Old myocardial infarction; E78.00 Pure hypercholesterolemia, unspecified; E78.5 Hyperlipidemia, unspecified; F41.9 Anxiety disorder, unspecified; F32.9 Major depressive disorder, single episode, unspecified; K21.9 Gastro-esophageal reflux disease without esophagitis; K57.90 Diverticulosis of intestine, part unspecified, without perforation or abscess without bleeding; Z87.81 Personal history of (healed) traumatic fracture; Z98.890 Other specified postprocedural states; Z79.82 Long term (current) use of aspirin; Z79.02 Long term (current) use of antithrombotics/antiplatelets; Z95.5 Presence of coronary angioplasty implant and graft; Z95.1 Presence of aortocoronary bypass graft; Z95.9 Presence of cardiac and vascular implant and graft, unspecified; Z79.4 Long term (current) use of insulin; Z79.899 Other long term (current) drug therapy
CPT/HCPCS: 72125; 99283

== ENCOUNTER 2023-04-02 15:23 | Emergency (ER) | payer MEDICARE, MEDICAID ==
[~2023-04-02] VITALS: Ht 152 cm; Wt 51.3 kg
[~2023-04-02 15:23] MED LIST changes: +CYCL10TA25 PO; -CYCL10TA9 PO; -INSU100I29 SQ; +INSU100I30 SQ; -POTA99TA21 PO; +POTA99TA26 PO; -SIME80TA66 PO; +SIME80TA72 PO
[2023-04-02 16:36] LABS: AMORPHOUS SEDIMENT,UR RARE AMOR URATES /LPF; BACTERIA,URINE MODERATE /HPF; BILIRUBIN,URINE NEGATIVE (NEGATIVE); CLARITY,URINE CLEAR; COLOR,URINE YELLOW; GLUCOSE, URINE (UA) 3+ (NEGATIVE); KETONES,URINE NEGATIVE (NEGATIVE); LEUKOCYTE ESTERASE ,URINE 1+ (NEGATIVE); NITRITE,URINE NEGATIVE (NEGATIVE); PROTEIN,URINE NEGATIVE (NEGATIVE); RBC,URINE 0-2 /HPF
[2023-04-02] MEDS ORDERED: cefTRIAXone IV/IM 1,000 MG in NS (IVPB) 50 ML 50 ML IV STA (16:55)
--- NOTE | 2023-04-02 17:01 | ED General ---
General Chief Complaint: Glucose Problems Stated Complaint: AMS Nursing Triage Note: WAS FOUND UNRESPONSIVE ON HER WALKER AROUND 1400. EMS FOUND BLOOD GLUCOSE TO BE 43, STARTED IV GAVE D10 500mL, WOKE AFTER 100 mL, 255 BLOOD GLUCOSE UPON ARRIVAL TO TRUCK. ARRIVES TO ED WITH IV INTACT STARTED BY EMS. Source of Information: Patient Exam Limitations: No Limitations History of Present Illness Date Seen by Provider: Apr 02, 2023 Time Seen by Provider: 15:30 Initial Comments This 87-year-old woman is brought to the emergency room via EMS after being found unresponsive on the ground by a neighbor. She had been out with her daughter just prior to that. Her daughter dropped her off at home and she was walking into the house using her walker. She did not make it all the way into the home before she apparently fell and became unresponsive. Patient denies any injuries or pain. Her glucose on scene was found to be 43. After receiving 500 mL of the 10, blood sugar was up to 301. She reports history of UTI recently. She had been prescribed antibiotics but not yet able to start them. She reportedly had not eaten yet today but still took her Levemir 30 units which she typically takes twice daily. On arrival she is alert, oriented, and has no specific complaints. Her primary care provider is Oscar Kitchen in [facility] as Allergies and Home Medications Allergies Coded Allergies: Sulfa (Sulfonamide Antibiotics) (Verified Allergy, Unknown, 04/02/23) iodine (Verified Allergy, Unknown, 04/02/23) morphine (Verified Allergy, Unknown, PT TAKES LORTAB AT HOME, 04/02/23) prednisone (Verified Allergy, Unknown, 04/02/23) Patient Home Medication List Home Medication List Reviewed: Yes ALPRAZolam (Xanax Tablet) 0.25 Mg Tablet, 0.25 MG PO HS, (Reported) Entered as Reported by: ADRIAN KIM on 11/15/16825 Acetaminophen (Tylenol Extra Strength) 500 Mg Tablet, 1,000 MG PO Q6H PRN for PAIN-MILD, (Reported) Entered as Reported by: ADRIAN KIM on 11/15/16825 Albuterol Sulfate (Albuterol Sulfate) 2.5 Mg/3 Ml Vial.neb, 2.5 MG INH Q4H PRN for SHORTNESS OF BREATH Prescribed by: GUSTAVO OLVERA on 09/16/182099 Amlodipine Besylate (Amlodipine Besylate) 5 Mg Tablet, 5 MG PO DAILY, (Reported) Entered as Reported by: GANGA DENNIS on 05/16/16 124 Aspirin (Aspirin Ec 81 Mg) 81 Mg Tabec, 81 MG PO HS, (Reported) Entered as Reported by: SHERIDAN TITUS on 05/15/09 1044 Cephalexin (Cephalexin) 500 Mg Tablet, 500 MG PO BID Prescribed by: GUSTAVO OLVERA on 09/16/182099 Cholecalciferol (Vitamin D3) (Vitamin D3) 1,000 Unit Capsule, 1,000 UNIT PO BID, (Reported) Entered as Reported by: ADRIAN KIM on 11/15/16 08 Clopidogrel Bisulfate (Clopidogrel) 75 Mg Tablet, 75 MG PO HS, (Reported) Entered as Reported by: GANGA DENNIS on 05/16/16 124 Cyclobenzaprine HCl (Cyclobenzaprine HCl) 10 Mg Tablet, 10 MG PO HS PRN for MUSCLE SPASMS, (Reported) Entered as Reported by: ADRIAN KIM on 07/29/16 1300 Diclofenac Sodium (Diclofenac Sodium) 50 Mg Tablet.dr, 50 MG PO BID, (Reported) Entered as Reported by: ADRIAN KIM on 11/15/16 08 Diphenoxylate HCl/Atropine (Lomotil 2.5-0.025 mg Tablet) 1 Each Tablet, 1 TAB PO QID PRN for DIARRHEA, (Reported) Entered as Reported by: ADRIAN KIM on 11/15/16 08 Fish Oil/Dha/Epa (Fish Oil 1,200 mg Fish Oil) 1 Each Capsule, 1,200 MG PO BID, (Reported) Entered as Reported by: ADRIAN KIM on 11/15/16 08 Guaifenesin (Mucinex) 600 Mg Tab.er.12h, 600 MG PO BID PRN for CONGESTION, (Reported) Entered as Reported by: ADRIAN KIM on 11/15/16 08 Hydrocodone/Acetaminophen (Hydrocodone-Acetamin 5-325 mg) 1 Each Tablet, 1 TAB PO Q6H PRN for PAIN-MODERATE (5-7) Prescribed by: GUSTAVO OLVERA on 09/08/20 181 Insulin Detemir (Levemir Flextouch) 100 Unit/1 Ml Insuln.pen, 33 UNIT SQ BID, (Reported) Entered as Reported by: ADRIAN KIM on 11/15/16 0826 Isosorbide Mononitrate (Isosorbide Mononitrate ER) 30 Mg Tab.er.24h, 30 MG PO DAILY, (Reported) Entered as Reported by: GANGA DENNIS on 05/16/16 1242 L.acidoph & Paracasei,B.lactis (Probiotic) 1 Each Capsule, 1 CAP PO DAILY, (Reported) Entered as Reported by: ADRIAN KIM on 07/29/16 1300 Magnesium Oxide (Magnesium) 400 Mg Capsule, 400 MG PO BID, (Reported) Entered as Reported by: MELISSA ANDREWS on 04/15/13 0954 Mesalamine (Asacol Hd) 800 Mg Tablet.dr, 800 MG PO BID, (Reported) Entered as Reported by: VADIM CARTER on 07/06/15 1057 Multivits,Th W-Fe,Other Min (Thera-M) 1 Each Tablet, 1 TAB PO DAILY, (Reported) Entered as Reported by: ADRIAN KIM on 07/29/16 1300 Nitroglycerin (Nitroglycerin) 0.4 Mg Tab.subl, 0.4 MG SL UD PRN for CHEST PAIN, (Reported) Entered as Reported by: KONG BROWN on 05/15/16 1645 Ondansetron Hcl (Zofran) 4 Mg Tab, 4 MG PO TID PRN for NAUSEA/VOMITING-1ST LINE, (Reported) Entered as Reported by: GHISLAINE FIGUEROA on 12/24/12 1120 Oxycodone HCl (Oxycontin) 15 Mg Tab.er.12h, 15 MG PO Q12H, (Reported) Entered as Reported by: GANGA DENNIS on 05/16/16 1103 Pantoprazole Sodium (Pantoprazole Sodium) 40 Mg Tablet.dr, 40 MG PO BID, (Reported) Entered as Reported by: GANGA DENNIS on 05/16/16 1103 Paroxetine HCl (Paroxetine HCl) 40 Mg Tablet, 20 MG PO BID, (Reported) Entered as Reported by: ADRIAN IKM on 07/29/16 1300 Potassium Gluconate (Potassium) 99 Mg Tablet, 99 MG PO HS, (Reported) Entered as Reported by: KATHERINE BRINK on 2/20/17 0513 Pregabalin (Lyrica) 25 Mg Capsule, 25 MG PO BID, (Reported) Entered as Reported by: ADRIAN KIM on 11/15/16825 Simethicone (Gas Relief) 80 Mg Tab.chew, 80 MG PO TID PRN for GAS, (Reported) Entered as Reported by: ADRIAN KIM on 11/15/16825 Vitamin B Complex & Vit C No.4 (Super B Complex) 150 Mg Tablet, 150 MG PO DAILY, (Reported) Entered as Reported by: ADRIAN KIM on 11/15/16825 Review of Systems Review of Systems Constitutional: see HPI EENTM: no symptoms reported Respiratory: no symptoms reported Cardiovascular: no symptoms reported Gastrointestinal: no symptoms reported Genitourinary: see HPI : No Musculoskeletal: no symptoms reported Skin: no symptoms reported Psychiatric/Neurological: See HPI Hematologic/Lymphatic: No Symptoms Reported Immunological/Allergic: no symptoms reported Past Zmuhrzy-Ylvsto-Nrzpae Hx Patient Social History Tobacco Use?: No Substance use?: No Alcohol Use?: No Seasonal Allergies Seasonal Allergies: Yes Past Medical History Surgeries: Yes (shoulder sx, L knee sc, HANDS AND FEET JOINTS, TOE AMPUTATION) CABG, Coronary Stent Respiratory: No Currently Using CPAP: No Currently Using BIPAP: No Cardiac: Yes (STENTS,TRIPLE BYPASS SX 2010) Coronary Artery Disease, Heart Attack, High Cholesterol Neurological: Yes Neuropathy Reproductive Disorders: No Female Reproductive Disorders: Denies Sexually Transmitted Disease: No HIV/AIDS: No Genitourinary: Yes (STRESS INCONTINENCE) UTI-Chronic Gastrointestinal: Yes (DIVERTICULOSIS, CROHNS DISEASE) Gastroesophageal Reflux, Crohns Disease, Diverticulosis, Chronic Diarrhea, Hiatal Hernia Musculoskeletal: No (ARTHRITIS, STENOSIS, POLIO AT AGE 14) Arthritis, Chronic Back Pain, Fractures Endocrine: Yes Diabetes, Insulin dep HEENT: Yes (READING GLASSES) Loss of Vision: Denies Hearing Impairment: Denies Cancer: No Psychosocial: No Anxiety, Depression Integumentary: No Blood Disorders: No Adverse Reaction/Blood Tranf: No Family Medical History Cardiovascular disease 19 FATHER Diabetes mellitus 19 FATHER G8 SISTER Hypertension 19 FATHER Myocardial infarction 19 FATHER No Pertinent Family Hx Physical Exam Vital Signs Vital Signs - First Documented 04/02/23 15:26 Temp 35.6 Pulse 70 Resp 18 B/P (MAP) 159/80 (106) Pulse Ox 97 Capillary Refill : Height, Weight, BMI Height: 4'10.00" Weight: 130lbs. 0.0oz. [id number]; 22.00 BMI Method:Stated General Appearance: No Apparent Distress, WD/WN HEENT: PERRL/EOMI, Normal ENT Inspection Neck: Normal Inspection, Non Tender Respiratory: Lungs Clear, Normal Breath Sounds, No Accessory Muscle Use Cardiovascular: Regular Rate, Rhythm, No Edema, No Murmur Gastrointestinal: Non Tender, Soft Extremity: Normal Inspection, Non Tender, No Pedal Edema, Other (No pain with range of motion) Neurologic/Psychiatric: Alert, Oriented x3, No Motor/Sensory Deficits, Normal Mood/Affect Skin: Normal Color, Warm/Dry Progress/Results/Core Measures Suspected Sepsis SIRS Temperature: Pulse: 70 Respiratory Rate: 18 Blood Pressure 159 /80 Mean: 106 Results/Orders Lab Results Laboratory Tests Test 04/02/23 15:29 04/02/23 16:12 04/02/23 17:13 Range/Units Glucometer 301 H 172 H 70-110 MG/DL Urine Color YELLOW Urine Clarity CLEAR Urine pH 5.0 5-9 Urine Specific [place] 1.015 L 1.016-1.022 Urine Protein NEGATIVE NEGATIVE Urine Glucose (UA) 3+ H NEGATIVE Urine Ketones NEGATIVE NEGATIVE Urine Nitrite NEGATIVE NEGATIVE Urine Bilirubin NEGATIVE NEGATIVE Urine Urobilinogen 0.2 < = 1.0 MG/DL Urine Leukocyte Esterase 1+ H NEGATIVE Urine RBC (Auto) NEGATIVE NEGATIVE Urine RBC 0-2 /HPF Urine WBC 5-10 H /HPF Urine Squamous Epithelial Cells 2-5 /HPF Urine Crystals PRESENT H /LPF Urine Amorphous Sediment RARE MAGGIE URATES H /LPF Urine Bacteria MODERATE H /HPF Urine Casts PRESENT /LPF Urine Hyaline Casts 10-25 H /LPF Urine Mucus MODERATE H /LPF Urine Culture Indicated YES Micro Results Microbiology 04/02/23 Urine Culture - Preliminary, Resulted Gram Negative Bacillus 1 My Orders Orders - NIDIA COREY MD Ua Culture If Indicated (04/02/23 15:42) Accucheck Stat ONCE (04/02/23 15:42) General/Regular (04/02/23 Lunch) Urine Culture (04/02/23 16:12) Ceftriaxone Iv/Im (Ceftriaxone Iv/Im) (04/02/23 16:55) Accucheck Stat ONCE (04/02/23 16:57) Vital Signs/I&O 04/02/23 04/02/23 15:26 17:34 Temp 35.6 Pulse 70 81 Resp 18 18 B/P (MAP) 159/80 (106) 121/64 Pulse Ox 97 97 Capillary Refill : Blood Pressure Mean: 106 Point of Care Testing Finger Stick Blood Glucose: 301 Blood Glucose Action Taken: DR. COREY INFORMED Progress Note : Progress Note Urinalysis was obtained for urine culture. There was evidence of UTI with presence of WBC and bacteria in the urinalysis. Patient was provided food and blood sugar was monitored. She was feeling well with a blood sugar of 172 prior to discharge. See discharge instructions for further discussion. Departure Impression Primary Impression: Hypoglycemia Additional Impressions: Fall on same level Qualified Codes: W18.30XA - Fall on same level, unspecified, initial encounter Urinary tract infection Qualified Codes: N39.0 - Urinary tract infection, site not specified Disposition: HOME, SELF-CARE Condition: Improved Departure-Patient Inst. Decision time for Depature: 16:59 Referrals: LEDY SIMPSON MD (PCP/Family) Primary Care Physician Patient Instructions: HYPOGLYCEMIA, Urinary Tract Infection, Adult ED Add. Discharge Instructions: Drink plenty of clear liquids to stay well-hydrated. Eat a well-balanced diet. Avoid skipping meals as this may cause a dangerously low drop in blood sugar. Check your blood sugars fasting in the morning and 2 hours after 1 or 2 meals each day. Bring a log of these blood sugars to a follow-up appointment with your doctor. If your blood sugars are running less than 120 consistently, consider decreasing your insulin to 25 units twice a day instead of 30 units twice a day. Use the antibiotics prescribed to you by your doctor. A urine culture is being run at the hospital and should be available within 2 days. Follow-up on the culture results by contacting your doctor. Alternatively, if you are not able to get results from your doctor in a timely fashion, you may contact the em ergency room on Friday or Friday to obtain results. Reviewing your urine culture will help you know if the current antibiotic is the most appropriate antibiotic for the type of infection you have. Return to the emergency room if you have worsening symptoms despite following these instructions. All discharge instructions reviewed with patient and/or family. Voiced understanding. NIDIA COREY MD Apr 02, 2023 17:01
[2023-04-02 17:34] VITALS: BP 121/64
[2023-04-07] MEDS ORDERED: CEFD300C3 PO (02:45)
== END 2023-04-02 17:36 | disposition home or self-care (01) ==
LOC: EDUNIT# 15:23 → ER 15:24
DX: E11.649 Type 2 diabetes mellitus with hypoglycemia without coma (principal); N39.0 Urinary tract infection, site not specified; Z79.4 Long term (current) use of insulin; Z88.2 Allergy status to sulfonamides; W18.30XA Fall on same level, unspecified, initial encounter; Y93.01 Activity, walking, marching and hiking; Y92.009 Unspecified place in unspecified non-institutional (private) residence as the place of occurrence of the external cause
CPT/HCPCS: 81000; 82947; 87077; 87088; 87186; 96365